=== PATIENT | female | born 1985 | race Caucasian/White ===

== ENCOUNTER 2016-10-14 00:43 | Emergency (ER) ==
[2016-10-14 00:54] VITALS: BP 133/84; TEMP 97.9; BMI 35.5
[2016-10-14] MEDS ORDERED: ZOFRAN 4 MG/2 ML IM STA (00:54)
[2016-10-14] MEDS ORDERED: DILAUDID 1 MG/ML SYRINGE IM STA (00:54)
[2016-10-14] MEDS ORDERED: TORADOL IM STA (00:54)
--- NOTE | 2016-10-14 00:57 | ED.PDOC ---
General ED Provider: Dr. HANNY HOOPER Chief Complaint: Abdominal Pain Stated Complaint: sTARTED HURTING IN THE LEFT LOWER BELLY, WORSE PAIN EVER. Time Seen by Physician: 00:55 Mode of Arrival: Walk-In Information Source: Patient Primary Care Provider: ALON JOHNSON Nursing and Triage Documentation Reviewed and Agree: Yes GI Complaint Exam - Abdominal Pain Complaint/Exam Onset: Sudden Symptoms Are: Still present Timing: Constant Initial Severity: Severe Current Severity: Severe Location of Pain: LUQ Radiates To: Reports: Flank Character: Reports: Aching, Throbbing Aggravating: Reports: Movement Alleviating: Reports: None Associated Signs and Symptoms: Reports: Nausea. Denies: Diaphoresis, Fever, Cough, Chest pain, Dizziness, Back pain, Constipation, Blood in stool, Dysuria, Urinary frequency, Decreased urine output, Decreased appetite, Vaginal bleeding , Vaginal discharge, Vomiting, Diarrhea, Sore throat, Decreased activity Related History: Reports: Similar episode AAA Risk Factors: Reports: None Cardiac Risk Factors: Reports: None Ectopic Risk Factors: Reports: None Ovarian Torsion Risk Factors: Reports: None Surgical Obstruction Risk Factors: Reports: None Related Surgical History: Reports: None Abdominal Findings: Present: None Differential Diagnoses: , Ovarian Cyst Review of Systems - Review Of Systems Constitutional: Reports: No symptoms Eyes: Reports: No symptoms Ears, Nose, Mouth, Throat: Reports: No symptoms Respiratory: Reports: No symptoms Cardiac: Reports: No symptoms GI: Reports: Abdominal pain, Nausea : Reports: No symptoms Musculoskeletal: Reports: No symptoms Skin: Reports: No symptoms Neurological: Reports: No symptoms Endocrine: Reports: No symptoms Hematologic/Lymphatic: Reports: No symptoms All Other Systems: Reviewed and Negative Past Medical History - Past Medical History Previously Healthy: No Endocrine: Reports: Other Cardiovascular: Reports: Other Respiratory: Reports: PE 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 Denies: Hysterectomy (D&c) - Family History Family History: Reports: Unknown - Social History Smoking Status: Current every day smoker, Light tobacco smoker Smoking Cessation Counseling Time: > 3 min - 10 min Hx Substance Use: No Alcohol Screening: Occasionally - Immunizations Tetanus Shot up to Date: Yes Physical Exam - Physical Exam Appearance: Ill-appearing, Obese Eyes: EOMI ENT: Ears normal, Nose normal, Oropharynx normal Respiratory: Airway patent, Breath sounds clear, Breath sounds equal, Respirations nonlabored Cardiovascular: RRR, Pulses normal, No rub, No murmur GI/: Soft, Tender Musculoskeletal: Normal strength, ROM intact, No edema, No calf tenderness Skin: Warm, Dry, Normal color Neurological: Sensation intact, Motor intact, Reflexes intact, Cranial nerves intact, Alert, Oriented Psychiatric: Affect appropriate, Mood appropriate Critical Care Note - Critical Care Note Total Time (mins): 0 Course - Course Orders, Labs, Meds: Orders Category Date Time Status URINALYSIS C & S IF INDICATED Stat LAB 10/14/16 00:54 Uncollected URINE Stat LAB 10/14/16 00:54 Uncollected Hydromorphone HCl [Dilaudid 1 mg/ml Syringe] MEDS 10/14/16 00:54 Discontinued 1 mg IM ONCE STA Ketorolac Tromethamine [Toradol] MEDS 10/14/16 00:54 Discontinued 60 mg IM ONCE STA Ondansetron HCl/Pf [Zofran 4 mg/2 ml] MEDS 10/14/16 00:54 Discontinued 4 mg IM ONCE STA CT ABDOMEN/PELVIS WO CONTRAST Stat RADS 10/14/16 00:54 Ordered Medications Discontinued Medications Generic Name Dose Route Start Last Admin Trade Name Freq PRN Reason Stop Dose Admin Hydromorphone HCl 1 mg 10/14/16 00:54 Dilaudid 1 Mg/Ml Syringe IM 10/14/16 00:55 ONCE STA Ketorolac Tromethamine 60 mg 10/14/16 00:54 Toradol IM 10/14/16 00:55 ONCE STA Ondansetron HCl 4 mg 10/14/16 00:54 Zofran 4 Mg/2 Ml IM 10/14/16 00:55 ONCE STA Vital Signs: Temp Pulse Resp BP Pulse Ox 10/14/16 00:44 97.9 F 90 20 133/84 96 Departure - Departure Time of Disposition: 00:58 Disposition: HOME SELF-CARE Discharge Problem: Abdominal pain Instructions: Ovarian Cyst (ED) Condition: Stable Pt referred to PMD for follow-up: Yes Additional Instructions: keep f/u with PMD Needs f/u with Obgyn for the cyst evaluation Allergies/Adverse Reactions: Allergies No Known Allergies Allergy (Verified 10/14/16 00:54) Home Medications: Ambulatory Orders Propranolol HCl [Inderal] 20 mg PO DAILY 03/28/13 Warfarin Sodium [Coumadin] 7 mg PO EVERY OTHER DAY 03/28/13 Warfarin Sodium [Coumadin] 8 mg PO EVERY OTHER DAY 03/15/16 Alprazolam [Xanax] 0.5 mg PO TID #90 05/13/16 Citalopram Hydrobromide [Celexa] 40 mg PO BEDTIME #30 05/13/16 Amoxicillin/Potassium Clav [Augmentin 500-125 mg Tab] 1 tab PO Q12HR #20 tablet 09/23/16 Dextromethorphan Hb/Doxylamine [Robitussin Nighttime Cough Dm] 118 ml PO TID #1 bottle 09/23/16 Prednisone 10 mg PO BIDWM #14 tablet 09/23/16 Disposition Discussed With: Patient
[2016-10-14 01:11] LABS: BILIRUBIN,URINE Negative (NEGATIVE); KETONES,URINE Negative (NEGATIVE); LEUKOCYTE ESTERASE ,URINE Negative (NEGATIVE); NITRITE,URINE Negative (NEGATIVE); PH,URINE 5.5 (5-9); PROTEIN,URINE Negative (NEGATIVE); URINE, BLOOD 2+ (NEGATIVE)
[2016-10-14 01:13] LABS: ADD URINE MICROSCOPIC YES; URINE PREGNANCY INTERNAL QC INTERNAL QC VALID
--- NOTE | 2016-10-14 01:42 | CT ---
Exam: CT of the abdomen and pelvis without contrast History: Left lower abdomen pain FINDINGS: The lung bases are clear. No significant liver abnormality. The adrenals, pancreas and sp sal are unremarkable. The stomach and hiatus are unremarkable. Prior cholecystectomy. The appendix is normal. Bowel loops demonstrate normal caliber. No inflamatory change seen in the mesentery or r etroperitoneum. The kidneys and collecting system appear normal. Vascular structures appear normal by noncontrast CT. Tiny fatty umbilical hernia without complication. Pelvic genitourinary structures appear normal. Pelvic bowel loops are unremarkable. No inflammatory change in the pelvic fat. No acute abnormality of the abdominal or pelvic skeleton. Impression: 1. No inflammatory process, bowel or urinary obstruction. No acute findings of the abdomen or pelv is.
== END 2016-10-14 02:12 | disposition home or self-care (01) ==
LOC: ED 00:43
DX: R10.32 Left lower quadrant pain (principal); D68.2 Hereditary deficiency of other clotting factors; F17.210 Nicotine dependence, cigarettes, uncomplicated; Z79.01 Long term (current) use of anticoagulants; Z79.899 Other long term (current) drug therapy
CPT/HCPCS: 81001; 81025; 96372; 99283

== ENCOUNTER 2016-10-22 22:15 | Emergency (ER) ==
[2016-10-22 22:24] VITALS: BP 124/88; TEMP 102; BMI 34.7
[2016-10-22] MEDS ORDERED: DECADRON 4 MG/ML SDV IVP STA (22:37)
[2016-10-22] MEDS ORDERED: SODIUM CHLORIDE 500 ML IV STA (22:37)
[2016-10-22] MEDS ORDERED: ROCEPHIN 1 GM in SODIUM CHLORIDE 50 ML IV STA (22:38)
--- NOTE | 2016-10-22 22:41 | ED.PDOC ---
General ED Provider: Dr. HANNY HOOPER Chief Complaint: Non-specific Complaint Stated Complaint: Sore throat, fever chills, was in [facility] for the same yesterday, is been treated with antibiotics. not helping Time Seen by Physician: 22:39 Mode of Arrival: Walk-In Information Source: Patient Primary Care Provider: ALON JOHNSON Nursing and Triage Documentation Reviewed and Agree: Yes EENT Complaint Exam - Throat Complaint/Exam Symptoms Are: Still present Timimg: Constant Initial Severity: Moderate Current Severity: Moderate Aggravating: Reports: Eating Alleviating: Reports: None Associated Signs and Symptoms: Reports: Fever, Dysphagia, Cough, Sinus discomfort, Nasal congestion, Irritability, Decreased activity. Denies: Drooling, Foreign body sensation, Chills, Wheezing, Hoarseness, Difficulty breathing, Lethargy, Vomiting, Diarrhea, Decreased hearing, Ear drainage Related History: Reports: Similar Episode Uvula Midline: Yes Mari-tonsillar Fluctuence: No Scarlatinaform Rash Present: No Stridor Present: No Sinus Tenderness Present: No Tonsillar Hypertrophy Present: No Tonsillar Exudate Present: No Mari-tonsillar Swelling Present: No Adenopathy Present: Yes Splenomegaly Present: No Differential Diagnoses: Influenza, Laryngitis, Pharyngitis, URI Review of Systems - Review Of Systems Constitutional: Reports: Chills, Fever, Malaise, Weakness Eyes: Reports: No symptoms Ears, Nose, Mouth, Throat: Reports: Throat pain Respiratory: Reports: Cough Cardiac: Reports: No symptoms GI: Reports: No symptoms : Reports: No symptoms Musculoskeletal: Reports: No symptoms Skin: Reports: No symptoms Neurological: Reports: No symptoms Endocrine: Reports: No symptoms Hematologic/Lymphatic: Reports: No symptoms All Other Systems: Reviewed and Negative Past Medical History - Past Medical History Previously Healthy: No Endocrine: Reports: Other Cardiovascular: Reports: Other Respiratory: Reports: PE 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 Denies: Hysterectomy (D&c) - Family History Family History: Reports: Unknown - Social History Smoking Status: Current every day smoker, Light tobacco smoker Smoking Cessation Counseling Time: > 3 min - 10 min Hx Substance Use: No Alcohol Screening: Occasionally Physical Exam - Physical Exam Appearance: Ill-appearing, Obese Eyes: BEE, EOMI, Conjunctiva clear ENT: Epistaxis, Erythema, Dry mucosa Respiratory: Airway patent, Breath sounds clear, Breath sounds equal, Respirations nonlabored Cardiovascular: RRR, Pulses normal, No rub, No murmur GI/: Soft, Nontender, No masses, Bowel sounds normal, No Organomegaly Musculoskeletal: Normal strength, ROM intact, No edema, No calf tenderness Skin: Warm, Dry, Normal color Neurological: Sensation intact, Motor intact, Reflexes intact, Cranial nerves intact, Alert, Oriented Psychiatric: Affect appropriate, Mood appropriate Critical Care Note - Critical Care Note Total Time (mins): 0 Course - Course Hematology/Chemistry: 10/22/16 22:58 10/22/16 22:58 Orders, Labs, Meds: Orders Category Date Time Status ED IV/MEDIPORT/POWERPORT .ONCE EMERGENCY 10/22/16 22:37 Ordered BLOOD CULTURE Stat LAB 10/22/16 22:38 Ordered CBC W/ AUTO DIFF Stat LAB 10/22/16 22:37 Ordered COMPREHENSIVE METABOLIC PANEL Stat LAB 10/22/16 22:37 Ordered RAPID FLU A/B Stat LAB 10/22/16 22:34 Ordered RAPID FLU A/B Stat LAB 10/22/16 22:37 Uncollected STREP SCREEN Stat LAB 10/22/16 22:34 Ordered STREP SCREEN Stat LAB 10/22/16 22:37 Uncollected URINALYSIS C & S IF INDICATED Stat LAB 10/22/16 22:34 Ordered URINALYSIS C & S IF INDICATED Stat LAB 10/22/16 22:37 Uncollected 0.9 % Sodium Chloride [Saline Flush] MEDS 10/22/16 22:37 Ordered 1 syr IVF PRN PRN Ceftriaxone Sodium [Rocephin] 1 gm MEDS 10/22/16 22:38 Ordered 0.9 % Sodium Chloride [Sodium Chloride] 50 ml IV ONCE Dexamethasone 4 mg/ml Inj [Decadron 4 mg/ml Sdv] MEDS 10/22/16 22:37 Stat 4 mg IVP ONCE STA SODIUM CHLORIDE 0.9% @ 500 MLS/HR(500ml) MEDS 10/22/16 22:37 Ordered Sodium Chloride 0.9% [Sodium Chloride] 500 ml IV BOLUS Medications Generic Name Dose Route Start Last Admin Trade Name Freq PRN Reason Stop Dose Admin Sodium Chloride 500 mls @ 500 mls/hr 10/22/16 22:37 Sodium Chloride IV 10/22/16 23:36 BOLUS STA Ceftriaxone Sodium 1 gm/ 50 mls @ 75 mls/hr 10/22/16 22:38 Sodium Chloride IV 10/22/16 23:17 ONCE STA Sodium Chloride 1 syr 10/22/16 22:37 Saline Flush IVF PRN PRN To flush IV Discontinued Medications Generic Name Dose Route Start Last Admin Trade Name oJseq PRN Reason Stop Dose Admin Dexamethasone Sodium Phosphate 4 mg 10/22/16 22:37 Decadron 4 Mg/Ml Sdv IVP 10/22/16 22:38 ONCE STA Vital Signs: Temp Pulse Resp BP Pulse Ox 10/22/16 22:15 102.0 F H 68 18 124/88 99 Departure - Departure Time of Disposition: 23:55 Disposition: AMA Discharge Problem: Pharyngitis Qualifiers: Pharyngitis/tonsillitis etiology: unspecified etiology Qualifier Code: (J02.9) Acute pharyngitis, unspecified Instructions: Pharyngitis (ED) Condition: Stable Pt referred to PMD for follow-up: Yes Additional Instructions: patient demands to get norcotic pain medications. Allergies/Adverse Reactions: Allergies No Known Allergies Allergy (Verified 10/22/16 22:28) Home Medications: Ambulatory Orders Propranolol HCl [Inderal] 20 mg PO DAILY 03/28/13 Warfarin Sodium [Coumadin] 7 mg PO EVERY OTHER DAY 03/28/13 Warfarin Sodium [Coumadin] 8 mg PO EVERY OTHER DAY 03/15/16 Alprazolam [Xanax] 0.5 mg PO TID #90 05/13/16 Citalopram Hydrobromide [Celexa] 40 mg PO BEDTIME #30 05/13/16 Amoxicillin/Potassium Clav [Augmentin 500-125 mg Tab] 1 tab PO BID 10/22/16 Disposition Discussed With: Patient, Family
[2016-10-22 22:57] LABS: BILIRUBIN,URINE Negative (NEGATIVE); KETONES,URINE Negative (NEGATIVE); LEUKOCYTE ESTERASE ,URINE Negative (NEGATIVE); NITRITE,URINE Negative (NEGATIVE); PH,URINE 7.5 (5-9); PROTEIN,URINE Negative (NEGATIVE); URINE, BLOOD Trace-lysed (NEGATIVE)
[2016-10-22 22:59] LABS: ADD URINE MICROSCOPIC YES
[2016-10-22 23:04] LABS: BASOPHILS % (AUTO) 0.2 % (0.0-3.0); EOSINOPHILS % (AUTO) 0.1 % (0.0-7.0); HEMATOCRIT 39.3 % (37.0-47.0); HEMOGLOBIN 13.1 g/dl (12.0-16.0); IMMATURE GRANULOCYTE % (AUTO) 0.6 % (0.0-5.0); LYMPHOCYTES # (AUTO) 1.1 K/uL (0.60-3.4); LYMPHOCYTES % (AUTO) 6.6 (10.0-50.0); MEAN CORPUSCULAR HEMOGLOBIN 33.3 pg (27.0-31.0); MEAN CORPUSCULAR HGB CONC 33.3 (31.8-35.4); MONOCYTES # (AUTO) 1.2 K/uL (0.4-2.0); MONOCYTES % (AUTO) 7.6 (0-10); NEUTROPHILS # (AUTO) 13.7 K/ul (2.0-6.9); NEUTROPHILS % (AUTO) 84.9; PLATELET COUNT 322 10^3/uL (140-440); RED BLOOD COUNT 3.93 10^6/ul (4.20-5.40); WHITE BLOOD COUNT 16.08 K/ul (4.6-10.2)
[2016-10-22 23:08] LABS: FLU INTERNAL QC INTERNAL QC VALID; RAPID FLU A NEGATIVE (NEGATIVE); RAPID FLU B NEGATIVE (NEGATIVE)
[2016-10-22 23:20] LABS: ALBUMIN 3.4 g/dL (3.4-5.0); ANION GAP 10.9; BILIRUBIN,TOTAL 0.45 mg/dL (0.00-1.20); BUN/CREATININE RATIO 12.5; CALCIUM 8.5 mg/dL (8.2-10.2); CREATININE 0.72 mg/dL (0.60-1.30); POTASSIUM 3.9 mmol/L (3.5-5.10); TOTAL PROTEIN 6.8 g/dL (6.4-8.2)
== END 2016-10-23 00:18 | disposition left against medical advice (07) ==
LOC: ED 22:15
DX: J02.9 Acute pharyngitis, unspecified (principal); R50.9 Fever, unspecified; R05 Cough; F17.210 Nicotine dependence, cigarettes, uncomplicated; Z79.01 Long term (current) use of anticoagulants; Z79.899 Other long term (current) drug therapy
CPT/HCPCS: 36415; 80053; 81001; 85025; 87040; 87651; 87804; 87880; 99284

== ENCOUNTER 2017-01-27 10:38 | Emergency (ER) ==
[2017-01-27 10:45] VITALS: BP 136/84; TEMP 97.8; BMI 35.5
[2017-01-27] MEDS ORDERED: ZOFRAN 4 MG/2 ML IM STA (11:00)
[2017-01-27] MEDS ORDERED: MORPHINE 4 MG/ML SYRINGE IM STA (11:00)
--- NOTE | 2017-01-27 11:57 | ED.PDOC ---
General ED Provider: Dr. AMIE CLARKE Chief Complaint: Headache Stated Complaint: headache Time Seen by Physician: 10:40 (yanni present ) Mode of Arrival: Walk-In Information Source: Patient Exam Limitations: No limitations Primary Care Provider: ALON JOHNSON Nursing and Triage Documentation Reviewed and Agree: Yes Neurological Complaint Exam - Headache Complaint/Exam Onset: Gradual Duration: 1 day Symptoms Are: Still present Timing: Constant Episodes Lasting: Hours Worst Headache Ever: No Initial Severity: Moderate Current Severity: Moderate Location: Frontal, Temporal Character: Reports: Throbbing Aggravating: Reports: None Alleviating: Reports: None Associated Signs and Symptoms: Reports: Nausea. Denies: Dizziness, Seizure, Vomiting, Sinus pressure, Fever, Neck pain, Neck stiffness, Decreased LOC, Visual changes Related History: Reports: Similar episode Related Surgical History: Reports: None SAH Risk Factors: Reports: None Meningitis Risk Factors: Reports: None SDH Risk Factors: Reports: None Temporal Arteritis Risk Factors: Reports: Female, Fundoscopic Exam: Present: Normal Findings Papilledema Present: No Temporal Artery Tenderness: Present: None Sinus Tenderness: Present: None TMJ Tenderness: Present: None Glascow Coma Scale (see protocol): 15 Meningeal Signs Positive: No ROM Limited In: No Limitiations Focal Weakness: Present: None Focal Sensory Loss: Present: None Gait: Normal Nystagmus Present: No Gag Reflex Present: Yes [id number]: Normal Findings Romberg Test Positive: No Babinski Sign: Negative Right, Negative Left (walked around er 11:49 am) Differential Diagnoses: Migraine Review of Systems - Review Of Systems Constitutional: Reports: No symptoms Eyes: Reports: No symptoms Ears, Nose, Mouth, Throat: Reports: No symptoms Respiratory: Reports: No symptoms Cardiac: Reports: No symptoms GI: Reports: No symptoms : Reports: No symptoms Musculoskeletal: Reports: No symptoms Skin: Reports: No symptoms Neurological: Reports: Headache Endocrine: Reports: No symptoms Hematologic/Lymphatic: Reports: No symptoms All Other Systems: Reviewed and Negative Past Medical History - Past Medical History Previously Healthy: No Endocrine: Reports: Other Cardiovascular: Reports: Other Respiratory: Reports: PE 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 Denies: Hysterectomy (D&c) - Family History Family History: Reports: Unknown - Social History Smoking Status: Current every day smoker, Light tobacco smoker Hx Substance Use: No Alcohol Screening: Occasionally Physical Exam - Physical Exam Appearance: Well-appearing, No pain distress, Well-nourished Eyes: BEE, EOMI, Conjunctiva clear ENT: Ears normal, Nose normal, Oropharynx normal Respiratory: Airway patent, Breath sounds clear, Breath sounds equal, Respirations nonlabored Cardiovascular: RRR, Pulses normal, No rub, No murmur GI/: Soft, Nontender, No masses, Bowel sounds normal, No Organomegaly Musculoskeletal: Normal strength, ROM intact, No edema, No calf tenderness Skin: Warm, Dry, Normal color Neurological: Sensation intact, Motor intact, Reflexes intact, Cranial nerves intact, Alert, Oriented Psychiatric: Affect appropriate, Mood appropriate Critical Care Note - Critical Care Note Total Time (mins): 0 Course - Course Orders, Labs, Meds: Orders Category Date Time Status Morphine Sulfate [Morphine 4 mg/ml Syringe] MEDS 01/27/17 11:00 Discontinued 4 mg IM ONCE STA Ondansetron HCl/Pf [Zofran 4 mg/2 ml] MEDS 01/27/17 11:00 Discontinued 4 mg IM ONCE STA Medications Discontinued Medications Generic Name Dose Route Start Last Admin Trade Name Emilia PRN Reason Stop Dose Admin Morphine Sulfate 4 mg 01/27/17 11:00 01/27/17 11:13 Morphine 4 Mg/Ml Syringe IM 01/27/17 11:01 4 mg ONCE STA Administration Ondansetron HCl 4 mg 01/27/17 11:00 01/27/17 11:13 Zofran 4 Mg/2 Ml IM 01/27/17 11:01 4 mg ONCE STA Administration Vital Signs: Temp Pulse Resp BP Pulse Ox 01/27/17 10:39 97.8 F 60 16 136/84 98 Departure - Departure Time of Disposition: 11:57 Disposition: HOME SELF-CARE Discharge Problem: Headache Instructions: Acute Headache (ED) Condition: Good Pt referred to PMD for follow-up: No Additional Instructions: Please call your Family Physician as soon as possible to schedule a follow-up appointment. Allergies/Adverse Reactions: Allergies No Known Allergies Allergy (Verified 01/27/17 10:43) Home Medications: Ambulatory Orders Propranolol HCl [Inderal] 20 mg PO DAILY 03/28/13 Warfarin Sodium [Coumadin] 7 mg PO Q72HR 03/28/13 Warfarin Sodium [Coumadin] 8 mg PO Q48H 03/15/16 Disposition Discussed With: Patient
== END 2017-01-27 12:24 | disposition home or self-care (01) ==
LOC: ED 10:38
DX: R51 Headache (principal); F17.210 Nicotine dependence, cigarettes, uncomplicated
CPT/HCPCS: 96372; 99283

== ENCOUNTER 2017-04-20 17:14 | Emergency (ER) ==
[2017-04-20 17:20] VITALS: BP 165/98; TEMP 98.6; BMI 35.5
[2017-04-20] MEDS ORDERED: SODIUM CHLORIDE 1,000 ML IV STA (17:33)
--- NOTE | 2017-04-20 17:33 | ED.PDOC ---
General ED Provider: Dr. KADEN COVINGTON Chief Complaint: Headache Stated Complaint: Working outdoors; feels weak, legs cramping, jaw feels tight. Headache Time Seen by Physician: 17:20 Mode of Arrival: Walk-In Information Source: Patient Exam Limitations: No limitations Primary Care Provider: ALON JOHNSON Nursing and Triage Documentation Reviewed and Agree: Yes Review of Systems - Review Of Systems Constitutional: Reports: Malaise, Weakness Eyes: Reports: No symptoms Respiratory: Reports: No symptoms Cardiac: Reports: No symptoms GI: Reports: Nausea Musculoskeletal: Reports: Other (legs and muscle cramping) Neurological: Reports: Headache All Other Systems: Reviewed and Negative Past Medical History - Past Medical History Previously Healthy: No Endocrine: Reports: Other Cardiovascular: Reports: Other Respiratory: Reports: PE Hematological: Reports: Other ( FACTOR 5; recently started on Xarelto) Gastrointestinal: Reports: None Genitourinary: Reports: Kidney stones, Other (Just off 15 day period; felt weak afterwards.) Neuro/Psych: Reports: Migraine, Anxiety, Depression Musculoskeletal: Reports: None Cancer: Reports: None Last Menstrual Period: 5 days ago Other Pertinent Past Medical History: FACTOR 5 - Surgical History General Surgical History: Reports: Tubal ligation, Cholecystectomy. Denies: Hysterectomy (D&c) - Family History Family History: Reports: Unknown - Social History Smoking Status: Current some day smoker Hx Substance Use: No Alcohol Screening: Occasionally - Immunizations Tetanus Shot up to Date: Yes Physical Exam - Physical Exam Appearance: Ill-appearing Ill-appearing: Mild Eyes: BEE, EOMI, Conjunctiva clear ENT: Nose normal, Oropharynx normal Neck: Supple Respiratory: Airway patent, Breath sounds clear, Breath sounds equal, Respirations nonlabored Cardiovascular: RRR, Pulses normal (Bilat radial ) GI/: Soft, Nontender Musculoskeletal: Normal strength, ROM intact Skin: Warm, Dry, Normal color Neurological: Sensation intact, Motor intact Psychiatric: Affect appropriate, Mood appropriate, Anxious Critical Care Note - Critical Care Note Total Time (mins): 25 Course - Course Hematology/Chemistry: 04/20/17 17:35 04/20/17 17:35 Orders, Labs, Meds: Lab Review 04/20/17 17:35 WBC 12.15 H RBC 4.46 Hgb 15.1 Hct 43.3 MCV 97.1 MCH 33.9 H MCHC 34.9 RDW Coeff of Rainer 12.3 Plt Count 364 Immature Gran % (Auto) 0.3 Neut % (Auto) 63.5 Lymph % (Auto) 25.5 [place] % (Auto) 8.8 Eos % (Auto) 1.4 Baso % (Auto) 0.5 Immature Gran # (Auto) 0.0 Neut # 7.7 H Lymph # 3.1 [place] # 1.1 Eos # 0.2 Baso # 0.1 Sodium 138 Potassium 4.1 Chloride 108 H Carbon Dioxide 20 L Anion Gap 14.1 BUN 12 Creatinine 0.75 Estimated GFR (MDRD) 90.00 BUN/Creatinine Ratio 16.00 Glucose 82 Calcium 9.1 Total Bilirubin 0.48 AST 15 ALT 17 Alkaline Phosphatase 65 Total Protein 7.2 Albumin 3.9 Globulin 3.3 Albumin/Globulin Ratio 1.18 Serum , Qual Negative Orders Category Date Time Status ED IV/MEDIPORT/POWERPORT .ONCE EMERGENCY 04/20/17 17:46 Active CBC W/ AUTO DIFF Stat LAB 04/20/17 17:35 Completed COMPREHENSIVE METABOLIC PANEL Stat LAB 04/20/17 17:35 Completed SERUM Stat LAB 04/20/17 17:35 Completed 0.9 % Sodium Chloride [Saline Flush] MEDS 04/20/17 17:46 Ordered 1 syr IVF PRN PRN Ondansetron HCl/Pf [Zofran 4 mg/2 ml] MEDS 04/20/17 18:20 Discontinued 4 mg IVP ONCE STA Sodium Chloride 0.9% [Sodium Chloride] 1,000 ml MEDS 04/20/17 17:33 Discontinued IV BOLUS Medications Generic Name Dose Route Start Last Admin Trade Name Freq PRN Reason Stop Dose Admin Sodium Chloride 1 syr 04/20/17 17:46 Saline Flush IVF PRN PRN To flush IV Discontinued Medications Generic Name Dose Route Start Last Admin Trade Name Freq PRN Reason Stop Dose Admin Sodium Chloride 1,000 mls @ 1,000 mls/hr 04/20/17 17:33 04/20/17 17:48 Sodium Chloride IV 04/20/17 18:32 1,000 mls/hr BOLUS STA Administration Ondansetron HCl 4 mg 04/20/17 18:20 04/20/17 18:23 Zofran 4 Mg/2 Ml IVP 04/20/17 18:21 4 mg ONCE STA Administration Vital Signs: Temp Pulse Resp BP Pulse Ox 07/12/17 17:15 98.6 F 67 18 165/98 H 97 Departure - Departure Time of Disposition: 18:49 Disposition: HOME SELF-CARE Discharge Problem: Nausea, Dehydration Instructions: Dehydration (ED) Condition: Stable Pt referred to PMD for follow-up: Yes (Call for appintment) Prescriptions: Hydrocodone Bit/Acetaminophen [Conetoe 7.5-325] 1 tab PO Q6HR PRN #12 tablet PRN Reason: pain Promethazine HCl [Phenergan Supp] 25 mg RC Q6H #10 tab Allergies/Adverse Reactions: Allergies No Known Allergies Allergy (Verified 01/27/17 10:43) Home Medications: Ambulatory Orders Propranolol HCl [Inderal] 20 mg PO DAILY 03/28/13 Hydrocodone Bit/Acetaminophen [Conetoe 7.5-325] 1 tab PO Q6HR PRN #12 tablet 04/20 Promethazine HCl [Phenergan Supp] 25 mg RC Q6H #10 tab 04/20/17 Rivaroxaban [Xarelto] 20 mg PO DAILY 04/20/17
[2017-04-20 17:51] LABS: BASOPHILS # (AUTO) 0.1 K/uL (0-0.2); BASOPHILS % (AUTO) 0.5 % (0.0-3.0); EOSINOPHILS # (AUTO) 0.2 K/ul (0.0-0.7); EOSINOPHILS % (AUTO) 1.4 % (0.0-7.0); HEMATOCRIT 43.3 % (37.0-47.0); HEMOGLOBIN 15.1 g/dl (12.0-16.0); IMMATURE GRANULOCYTE % (AUTO) 0.3 % (0.0-5.0); LYMPHOCYTES # (AUTO) 3.1 K/uL (0.60-3.4); LYMPHOCYTES % (AUTO) 25.5 (10.0-50.0); MEAN CORPUSCULAR HEMOGLOBIN 33.9 pg (27.0-31.0); MEAN CORPUSCULAR HGB CONC 34.9 (31.8-35.4); MEAN CORPUSCULAR VOLUME 97.1 fl (81.0-99.0); MONOCYTES # (AUTO) 1.1 K/uL (0.4-2.0); MONOCYTES % (AUTO) 8.8 (0-10); NEUTROPHILS # (AUTO) 7.7 K/ul (2.0-6.9); NEUTROPHILS % (AUTO) 63.5; PLATELET COUNT 364 10^3/uL (140-440); RED BLOOD COUNT 4.46 10^6/ul (4.20-5.40); WHITE BLOOD COUNT 12.15 K/ul (4.6-10.2)
[2017-04-20 18:05] LABS: SERUM PREGNANCY INTERNAL QC INTERNAL QC VALID
[2017-04-20 18:08] LABS: ALBUMIN 3.9 g/dL (3.4-5.0); ALBUMIN/GLOBULIN RATIO 1.18; ANION GAP 14.1; BILIRUBIN,TOTAL 0.48 mg/dL (0.00-1.20); CALCIUM 9.1 mg/dL (8.2-10.2); CREATININE 0.75 mg/dL (0.60-1.30); POTASSIUM 4.1 mmol/L (3.5-5.10); TOTAL PROTEIN 7.2 g/dL (6.4-8.2)
[2017-04-20] MEDS ORDERED: ZOFRAN 4 MG/2 ML IVP STA (18:20)
== END 2017-04-20 19:05 | disposition home or self-care (01) ==
LOC: ED 17:14
DX: E86.0 Dehydration (principal); R11.0 Nausea; F17.210 Nicotine dependence, cigarettes, uncomplicated; Z79.899 Other long term (current) drug therapy
CPT/HCPCS: 36415; 80053; 84703; 85025; 96360; 96361; 96374; 99283

== ENCOUNTER 2017-07-20 12:33 | Emergency (ER) ==
[2017-07-20 12:45] VITALS: BP 137/88; TEMP 98.5; BMI 36.8
--- NOTE | 2017-07-20 16:04 | ED.PDOC ---
General <RUBIN JONES - Last Filed: 07/20/17 19:47> Stated Complaint: mid abdominal pain x 4 days. No N/V/D/C. No fever or chills. No pain with urination. No urinary symptoms. Pain is 8/10. Patient also suffers from anxiety and states it's been getting very bad while waiting in ED to be seen. Time Seen by Physician: 15:58 Mode of Arrival: Walk-In Information Source: Patient Exam Limitations: No limitations Nursing and Triage Documentation Reviewed and Agree: Yes <MARIA CESAR - Last Filed: 07/21/17 06:57> ED Provider: Dr. MARIA CESAR Chief Complaint: Abdominal Pain Primary Care Provider: ALON BECKER GI Complaint Exam - Abdominal Pain Complaint/Exam Onset: Sudden Duration: 4 days Symptoms Are: Still present Timing: Constant Initial Severity: Moderate Current Severity: Severe Location of Pain: Diffuse (in periumbilical region) Character: Reports: Sharp (sharp this afternoon), Aching, Throbbing Aggravating: Reports: Food (triggers pain immediately) Alleviating: Reports: None Associated Signs and Symptoms: Denies: Back pain, Urinary frequency, Decreased urine output, Vaginal bleeding, Vaginal discharge, Nausea, Vomiting, Diarrhea <MARIA CESAR - Last Filed: 07/21/17 06:57> Review of Systems - Review Of Systems Constitutional: Reports: No symptoms Eyes: Reports: No symptoms Ears, Nose, Mouth, Throat: Reports: No symptoms Respiratory: Reports: No symptoms Cardiac: Reports: No symptoms GI: Reports: Abdominal pain. 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) Gastrointestinal: Reports: None Genitourinary: Reports: Kidney stones, Other (Just off 15 day period; felt weak afterwards.) Neuro/Psych: Reports: Migraine, Anxiety, Depression Musculoskeletal: Reports: None Cancer: Reports: None Last Menstrual Period: 09/14 Other Pertinent Past Medical History: FACTOR 5 - Surgical History General Surgical History: Reports: Tubal ligation, Cholecystectomy, Other (D&C) - Family History Family History: Reports: Unknown - Social History Smoking Status: Current every day smoker, Current some day smoker, Light tobacco smoker Hx Substance Use: No Alcohol Screening: Occasionally Lives: With family - Immunizations Tetanus Shot up to Date: No Influenza Vaccine within 12 Months: No Pneumococcal Vaccine up to Date: No <MARIA CESAR - Last Filed: 07/21/17 06:57> Physical Exam - Physical Exam Appearance: Well-appearing, No pain distress, Well-nourished Eyes: BEE, EOMI, Conjunctiva clear ENT: Ears normal, Nose normal, Oropharynx normal Respiratory: Airway patent, Breath sounds clear, Breath sounds equal, Respirations nonlabored Cardiovascular: RRR, Pulses normal, No rub, No murmur GI/: Soft, No masses, Bowel sounds normal, Tender Musculoskeletal: Normal strength, ROM intact, No edema, No calf tenderness Skin: Warm, Dry, Normal color Neurological: Sensation intact Psychiatric: Affect appropriate, Mood appropriate <RUBIN JONES - Last Filed: 07/20/17 19:47> - Physical Exam Appearance: Well-appearing, Well-nourished, Obese Ill-appearing: None Pain Distress: Moderate Eyes: BEE, EOMI, Conjunctiva clear ENT: Ears normal, Nose normal, Oropharynx normal Neck: Supple Respiratory: Airway patent, Breath sounds clear, Breath sounds equal, Respirations nonlabored Cardiovascular: RRR, Pulses normal, No rub, No murmur GI/: Soft, Nontender (including in periumbilical area to deep palpation. No CVA tenderness), No masses, Bowel sounds normal, No Organomegaly Musculoskeletal: Normal strength, ROM intact, No edema, No calf tenderness Skin: Warm, Dry, Normal color Neurological: Sensation intact, Motor intact, Reflexes intact, Cranial nerves intact, Alert, Oriented Psychiatric: Affect appropriate, Anxious <MARIA CESAR - Last Filed: 07/21/17 06:57> Interpretation - Radiology Interpretation Radiology Interpretation By: Radiologist Radiology Results: Positive Exam Interpreted: CT Scan ("periumbilical hernia"--reduced) <RUBIN JONES - Last Filed: 07/20/17 19:47> Re-Evaluation - Re-Evaluation Time of Re-Evaluation: 19:48 Status: Improved Vital Signs Stable: Yes Pain Level: 1 Appearance: NAD Lungs: Clear Skin: Warm and Dry Neuro: Alert and Oriented X3 CV: RRR <RUBIN JONES - Last Filed: 07/20/17 19:47> Critical Care Note - Critical Care Note Total Time (mins): 0 <RUBIN JONES - Last Filed: 07/20/17 19:47> Course - Course Hematology/Chemistry: 07/20/17 16:16 07/20/17 16:16 <RUBIN JONES - Last Filed: 07/20/17 19:47> - Course Hematology/Chemistry: 07/20/17 16:16 07/20/17 16:16 <MARIA CESAR - Last Filed: 07/21/17 06:57> - Course Orders, Labs, Meds: Lab Review 07/20/17 07/20/17 07/20/17 16:16 16:16 16:16 WBC 9.68 RBC 4.31 Hgb 14.6 Hct 41.1 MCV 95.4 MCH 33.9 H MCHC 35.5 H RDW Coeff of [place]ainer 12.7 Plt Count 313 Immature Gran % (Auto) 0.4 Neut % (Auto) 58.9 Lymph % (Auto) 31.6 [place] % (Auto) 7.9 Eos % (Auto) 0.8 Baso % (Auto) 0.4 Immature Gran # (Auto) 0.0 Neut # 5.7 Lymph # 3.1 [place] # 0.8 Eos # 0.1 Baso # 0.0 Sodium 138 Potassium 3.7 Chloride 107 Carbon Dioxide 22 Anion Gap 12.7 BUN 8 Creatinine 0.71 Estimated GFR (MDRD) 96.00 BUN/Creatinine Ratio 11.26 Glucose 83 Lactic Acid 9.3 Calcium 9.3 Total Bilirubin 0.74 AST 15 ALT 17 Alkaline Phosphatase 71 Total Protein 7.0 Albumin 3.6 Globulin 3.4 Albumin/Globulin Ratio 1.06 Amylase 31 Lipase 25 Urine Color Urine Clarity Urine pH Ur Specific [place] Urine Protein Urine Glucose (UA) Urine Ketones Urine Blood Urine Nitrite Urine Bilirubin Urine Urobilinogen Ur Leukocyte Esterase Urine Test 07/20/17 07/20/17 18:00 18:00 WBC RBC Hgb Hct MCV MCH MCHC RDW Coeff of [place] Plt Count Immature Gran % (Auto) Neut % (Auto) Lymph % (Auto) [place] % (Auto) Eos % (Auto) Baso % (Auto) Immature Gran # (Auto) Neut # Lymph # [place] # Eos # Baso # Sodium Potassium Chloride Carbon Dioxide Anion Gap BUN Creatinine Estimated GFR (MDRD) BUN/Creatinine Ratio Glucose Lactic Acid Calcium Total Bilirubin AST ALT Alkaline Phosphatase Total Protein Albumin Globulin Albumin/Globulin Ratio Amylase Lipase Urine Color Yellow Urine Clarity Clear Urine pH 6.5 Ur Specific [place] 1.020 Urine Protein Negative Urine Glucose (UA) Negative Urine Ketones Negative Urine Blood Negative Urine Nitrite Negative Urine Bilirubin Negative Urine Urobilinogen 0.2 Ur Leukocyte Esterase Negative Urine Test Negative Orders Category Date Time Status NPO REMINDER: IMAGING ONCE CARE 07/20/17 19:00 Active AMYLASE Stat LAB 07/20/17 16:16 Completed CBC W/ AUTO DIFF Stat LAB 07/20/17 16:16 Completed COMPREHENSIVE METABOLIC PANEL Stat LAB 07/20/17 16:16 Completed LACTIC ACID Stat LAB 07/20/17 16:16 Completed LIPASE Stat LAB 07/20/17 16:16 Completed TEST URINE [URINE ] Stat LAB 07/20/17 18:00 Completed URINALYSIS C & S IF INDICATED Stat LAB 07/20/17 18:00 Completed Hydromorphone HCl [Dilaudid 1 mg/ml Syringe] MEDS 07/20/17 19:38 Discontinued 1 mg IVP ONCE STA Lorazepam Inj [Ativan] MEDS 07/20/17 16:05 Discontinued 1 mg IM ONCE STA Morphine Sulfate [Morphine 2 mg/ml Syringe] MEDS 07/20/17 16:06 Discontinued 2 mg IM ONCE STA Ondansetron HCl/Pf [Zofran 4 mg/2 ml] MEDS 07/20/17 19:38 Discontinued 4 mg IVP ONCE STA Sodium Chloride 0.9% [Sodium Chloride] 1,000 ml MEDS 07/20/17 17:[address] ABDOMEN/PELVIS W CONTRAST Stat RADS 07/20/17 18:59 Completed Medications Discontinued Medications Generic Name Dose Route Start Last Admin Trade Name Freq PRN Reason Stop Dose Admin Hydromorphone HCl 1 mg 07/20/17 19:38 07/20/17 19:46 Dilaudid 1 Mg/Ml Syringe IVP 07/20/17 19:39 1 mg ONCE STA Administration Sodium Chloride 1,000 mls @ 1,000 mls/hr 07/20/17 17:02 07/20/17 17:32 Sodium Chloride IV 07/20/17 18:01 1,000 mls/hr BOLUS STA Administration Lorazepam 1 mg 07/20/17 16:05 07/20/17 16:28 Ativan IM 07/20/17 16:06 1 mg ONCE STA Administration Morphine Sulfate 2 mg 07/20/17 16:06 07/20/17 16:29 Morphine 2 Mg/Ml Syringe IM 07/20/17 16:07 2 mg ONCE STA Administration Ondansetron HCl 4 mg 07/20/17 19:38 07/20/17 19:46 Zofran 4 Mg/2 Ml IVP 07/20/17 19:39 4 mg ONCE STA Administration Vital Signs: Temp Pulse Resp BP Pulse Ox 07/20/17 12:33 98.5 F 92 H 20 137/88 99 Departure - Departure Time of Disposition: 19:48 Pt referred to PMD for follow-up: Yes Disposition Discussed With: Patient, Family <RUBIN JONES - Last Filed: 07/20/17 19:47> <MARIA CESAR - Last Filed: 07/21/17 06:57> - Departure Disposition: HOME SELF-CARE Discharge Problem: Umbilical hernia without mention of obstruction or gangrene Qualifiers: Obstruction and gangrene presence: without obstruction or gangrene Qualified Code(s): K42.9 - Umbilical hernia without obstruction or gangrene Instructions: Umbilical Hernia (ED) Condition: Good Additional Instructions: avoid lifting pulling or straining--see dr becker tomorrow about surgical referral Allergies/Adverse Reactions: Allergies No Known Allergies Allergy (Verified 07/20/17 12:40) Home Medications: Ambulatory Orders Propranolol HCl [Inderal] 20 mg PO DAILY 03/28/13 Promethazine HCl [Phenergan Supp] 25 mg RC Q6H #10 tab 04/20/17 Rivaroxaban [Xarelto] 20 mg PO DAILY 04/20/17
[2017-07-20 16:18] LABS: BASOPHILS % (AUTO) 0.4 % (0.0-3.0); EOSINOPHILS # (AUTO) 0.1 K/ul (0.0-0.7); EOSINOPHILS % (AUTO) 0.8 % (0.0-7.0); HEMATOCRIT 41.1 % (37.0-47.0); HEMOGLOBIN 14.6 g/dl (12.0-16.0); IMMATURE GRANULOCYTE % (AUTO) 0.4 % (0.0-5.0); LYMPHOCYTES # (AUTO) 3.1 K/uL (0.60-3.4); LYMPHOCYTES % (AUTO) 31.6 (10.0-50.0); MEAN CORPUSCULAR HEMOGLOBIN 33.9 pg (27.0-31.0); MEAN CORPUSCULAR HGB CONC 35.5 (31.8-35.4); MEAN CORPUSCULAR VOLUME 95.4 fl (81.0-99.0); MONOCYTES # (AUTO) 0.8 K/uL (0.4-2.0); MONOCYTES % (AUTO) 7.9 (0-10); NEUTROPHILS # (AUTO) 5.7 K/ul (2.0-6.9); NEUTROPHILS % (AUTO) 58.9; PLATELET COUNT 313 10^3/uL (140-440); RED BLOOD COUNT 4.31 10^6/ul (4.20-5.40); WHITE BLOOD COUNT 9.68 K/ul (4.6-10.2)
[2017-07-20] MEDS: ATIVAN IM STA (16:28)
[2017-07-20] MEDS: MORPHINE 2 MG/ML SYRINGE IM STA (16:29)
[2017-07-20 16:43] LABS: ALBUMIN 3.6 g/dL (3.4-5.0); ALBUMIN/GLOBULIN RATIO 1.06; ANION GAP 12.7; BILIRUBIN,TOTAL 0.74 mg/dL (0.00-1.20); BUN/CREATININE RATIO 11.26; CALCIUM 9.3 mg/dL (8.2-10.2); CREATININE 0.71 mg/dL (0.60-1.30); POTASSIUM 3.7 mmol/L (3.5-5.10)
[2017-07-20] MEDS: SODIUM CHLORIDE 1,000 ML IV STA (17:32)
[2017-07-20 18:13] LABS: BILIRUBIN,URINE Negative (NEGATIVE); KETONES,URINE Negative (NEGATIVE); LEUKOCYTE ESTERASE ,URINE Negative (NEGATIVE); NITRITE,URINE Negative (NEGATIVE); PH,URINE 6.5 (5-9); PROTEIN,URINE Negative (NEGATIVE); URINE, BLOOD Negative (NEGATIVE)
[2017-07-20 18:15] LABS: ADD URINE MICROSCOPIC NO
[2017-07-20 18:16] LABS: URINE PREGNANCY INTERNAL QC INTERNAL QC VALID
--- NOTE | 2017-07-20 19:41 | CT ---
EXAM: CT abdomen pelvis with intravenous contrast 07/20/2017. Sagittal and coronal reformatted imag es obtained HISTORY: Periumbilical pain COMPARISON: 10/14/2016 FINDINGS: The liver shows no acute abnormality. The gallbladder has been removed. The adrenal glan ds, kidneys, spleen and pancreas show no acute abnormality. There is no bowel obstruction. Normal appendix. Fat containing periumbilical hernia. Unremarkable urinary bladder. No free air. Trace free fluid within the pelvis. IMPRESSION: 1. Status post cholecystectomy. 2. Fat containing periumbilical hernia. 3. No urinary or bowel obstruction and normal appendix 4. Trace free fluid in the dependent aspect of the pelvis.
[2017-07-20] MEDS: ZOFRAN 4 MG/2 ML IVP STA (19:46)
[2017-07-20] MEDS: DILAUDID 1 MG/ML SYRINGE IVP STA (19:46)
== END 2017-07-20 20:10 | disposition home or self-care (01) ==
LOC: ED 12:33
DX: K42.9 Umbilical hernia without obstruction or gangrene (principal); F41.9 Anxiety disorder, unspecified; D68.51 Activated protein C resistance; F17.210 Nicotine dependence, cigarettes, uncomplicated; Z79.899 Other long term (current) drug therapy; Z87.442 Personal history of urinary calculi; Z86.711 Personal history of pulmonary embolism
CPT/HCPCS: 36415; 80053; 81001; 81025; 82150; 83605; 83690; 85025; 96361; 96372; 96374; 96375; 99284

== ENCOUNTER 2017-07-28 11:13 | Outpatient (CLI) ==
[2013-03-28 12:14] VITALS: TEMP 98.6
== END 2017-07-28 11:14 | disposition home or self-care (01) ==
LOC: LAB 11:13
PROVIDERS: ATTEND Surgery
DX: K43.2 Incisional hernia without obstruction or gangrene (principal)
CPT/HCPCS: 87081

== ENCOUNTER 2017-09-03 16:14 | Emergency (ER) ==
[2017-09-03 16:17] VITALS: BP 122/87; TEMP 98.6; BMI 37.1
[2017-09-03] MEDS ORDERED: TORADOL IM STA (16:41)
--- NOTE | 2017-09-03 16:44 | ED.PDOC ---
General ED Provider: Dr. HANNY HOOPER Chief Complaint: Ankle Pain/Injury Stated Complaint: left ankle pain, no injury Time Seen by Physician: 16:42 Mode of Arrival: Walk-In Information Source: Patient Primary Care Provider: ALON JOHNSON Nursing and Triage Documentation Reviewed and Agree: Yes Musculoskeletal Complaint Exam - Ankle/Foot Complaint/Exam Location of Injury: Reports: Left, Ankle Mechanism of Injury: Reports: No known trauma Symptoms Are: Reports: Still present Onset of Pain: Reports: Days Initial Severity: Mild Current Severity: Moderate Location: Reports: Discrete Character: Reports: Aching, Throbbing Alleviating: Reports: Rest Aggravating: Reports: Movement, Weight bearing Able to Bear Weight: No Associated Signs and Symptoms: Denies: Swelling, Redness, Bruising, Fever, Weakness, Numbness, Tingling Gout Risk Factors: Reports: None Related Surgical History: Reports: None Lower Extremity Findings: Absent: Swelling, Ecchymosis, Abnormal contour, Rotation Tenderness: Present: Medial malleolus Differential Diagnosis: Closed Fracture, Sprain Review of Systems - Review Of Systems Constitutional: Reports: No symptoms Eyes: Reports: No symptoms Ears, Nose, Mouth, Throat: Reports: No symptoms Respiratory: Reports: No symptoms Cardiac: Reports: No symptoms GI: Reports: No symptoms : Reports: No symptoms Musculoskeletal: Reports: Joint pain Skin: Reports: No symptoms Neurological: Reports: No symptoms Endocrine: Reports: No symptoms Hematologic/Lymphatic: Reports: No symptoms All Other Systems: Reviewed and Negative Past Medical History - Past Medical History Previously Healthy: No Endocrine: Reports: None Cardiovascular: Reports: None Respiratory: Reports: None, PE 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) Gastrointestinal: Reports: None Genitourinary: Reports: Kidney stones, Other (Just off 15 day period; felt weak afterwards.) Neuro/Psych: Reports: Migraine, Anxiety, Depression Musculoskeletal: Reports: None Cancer: Reports: None Last Menstrual Period: N/A Other Pertinent Past Medical History: FACTOR 5 - Surgical History General Surgical History: Reports: Tubal ligation, Cholecystectomy, Other (D&C) - Family History Family History: Reports: Unknown - Social History Smoking Status: Current every day smoker, Current some day smoker, Light tobacco smoker Smoking Cessation Counseling Time: > 3 min - 10 min Hx Substance Use: No Alcohol Screening: Occasionally - Immunizations Tetanus Shot up to Date: Yes Influenza Vaccine within 12 Months: No Pneumococcal Vaccine up to Date: No Physical Exam - Physical Exam Appearance: Well-appearing, No pain distress, Well-nourished Eyes: BEE, EOMI, Conjunctiva clear ENT: Ears normal, Nose normal, Oropharynx normal Respiratory: Airway patent, Breath sounds clear, Breath sounds equal, Respirations nonlabored Cardiovascular: RRR, Pulses normal, No rub, No murmur GI/: Soft, Nontender, No masses, Bowel sounds normal, No Organomegaly Musculoskeletal: Normal strength, ROM intact, No edema, No calf tenderness Skin: Warm, Dry, Normal color Neurological: Sensation intact, Motor intact, Reflexes intact, Cranial nerves intact, Alert, Oriented Psychiatric: Affect appropriate, Mood appropriate Interpretation - Radiology Interpretation Radiology Interpretation By: ED Physician Radiology Results: Negative Critical Care Note - Critical Care Note Total Time (mins): 0 Course - Course Orders, Labs, Meds: Orders Category Date Time Status Ketorolac Tromethamine [Toradol] MEDS 09/03/17 16:41 Discontinued 30 mg IM ONCE STA ANKLE, LEFT MIN 3 VIEWS Stat RADS 09/03/17 16:41 Taken Medications Discontinued Medications Generic Name Dose Route Start Last Admin Trade Name Freq PRN Reason Stop Dose Admin Ketorolac Tromethamine 30 mg 09/03/17 16:41 09/03/17 17:04 Toradol IM 09/03/17 16:42 30 mg ONCE STA Administration Vital Signs: Temp Pulse Resp BP Pulse Ox 09/03/17 16:15 98.6 F 100 H 20 122/87 98 Departure - Departure Time of Disposition: 16:45 Disposition: HOME SELF-CARE Discharge Problem: Ankle pain Instructions: Ankle Sprain (ED) Condition: Good Pt referred to PMD for follow-up: Yes Additional Instructions: Rest hot pack Prescriptions: Hydrocodone/Acetaminophen [[place] 5-325 Tablet] 1 tab PO TID PRN #7 tablet PRN Reason: PAIN Allergies/Adverse Reactions: Allergies No Known Allergies Allergy (Verified 09/03/17 16:18) Home Medications: Ambulatory Orders Propranolol HCl [Inderal] 20 mg PO DAILY 03/28/13 Promethazine HCl [Phenergan Supp] 25 mg RC Q6H #10 tab 04/20/17 Rivaroxaban [Xarelto] 20 mg PO DAILY 04/20/17 Hydrocodone/Acetaminophen [[place] 5-325 Tablet] 1 tab PO TID PRN #7 tablet Disposition Discussed With: Patient
--- NOTE | 2017-09-03 17:39 | DI ---
Exam: Three x-rays of the left ankle. Comparison: None available. Reason for exam: Pain. FINDINGS: No acute fracture or malalignment. The joint spaces are well maintained. The talar dome is intact. There is no abnormal widening of the medial or lateral clear space. Impression: No acute fracture or dislocation in the left ankle
== END 2017-09-03 17:52 | disposition home or self-care (01) ==
LOC: ED 16:14
DX: M25.572 Pain in left ankle and joints of left foot (principal); F17.210 Nicotine dependence, cigarettes, uncomplicated
CPT/HCPCS: 96372; 99282

== ENCOUNTER 2017-10-01 16:38 | Emergency (ER) ==
[2017-10-01 16:38] VITALS: BMI 37.1
[2017-10-01 16:41] VITALS: BP 131/73; TEMP 100.1
--- NOTE | 2017-10-01 17:55 | ED.PDOC ---
General ED Provider: Dr. AMIE CLARKE Chief Complaint: Tooth Problem Stated Complaint: dental pain Time Seen by Physician: 17:00 Mode of Arrival: Walk-In Information Source: Patient Exam Limitations: No limitations Primary Care Provider: ALON JOHNSON Nursing and Triage Documentation Reviewed and Agree: Yes Reviewed sepsis parameters & appropriate labs ordered?: Yes (seen with víctor) System Inflammatory Response Syndrome: Not Applicable Sepsis Protocol: For patient's 13 years and over: Temp is 96.8 and below OR 101 and greater Pulse >90 BPM Resp >20/minute Acutely Altered Mental Status Are patient's symptoms suggestive of a new infection, such as: -Pneumonia -Skin, Soft Tissue -Endocarditis -UTI -Bone, Joint Infection -Implantable Device -Acute Abdominal Infection -Wound Infection -Meningitis -Blood Stream Catheter Infection -Unknown EENT Complaint Exam - Dental/Oral Complaint/Exam Mechanism of Injury: No known trauma Onset/Duration: 1 day Symptoms Are: Still present Timing: Constant Initial Severity: Moderate Current Severity: Moderate Character: Reports: Aching, Throbbing Aggravating: Reports: Heat, Cold, Chewing Alleviating: Reports: None Associated Signs and Symptoms: Denies: Swelling, Discharge, Fever, Foul odor, Foul taste in mouth Related History: Reports: Similar episode Cardiac Risk Factors: Reports: None Dental/Oral Surgical History: Reports: None Tooth Findings: Present: Gross decay, Gross caries, Dental fracture Cervical Lymphadenopathy Present: No Facial Swelling Present: No Bleeding Present: No Oropharynx Findings: Absent: Clots, Active bleeding Septal Hematoma: No Foreign Body Present: No Dysphagia Present: No Drooling Present: No Asymmetrical Tonsillar Swelling Present: No Uvula Midline: Yes Mari-tonsillar Fluctuence: No Trismus Present: No Palatal Petechiae Present: No Scarlatinaform Rash Present: No Teeth Picture: 1 - decay Review of Systems - Review Of Systems Constitutional: Reports: No symptoms Eyes: Reports: No symptoms Ears, Nose, Mouth, Throat: Reports: No symptoms Respiratory: Reports: No symptoms Cardiac: Reports: No symptoms GI: Reports: No symptoms : Reports: No symptoms Musculoskeletal: Reports: No symptoms Skin: Reports: No symptoms Neurological: Reports: No symptoms Endocrine: Reports: No symptoms Hematologic/Lymphatic: Reports: No symptoms All Other Systems: Reviewed and Negative Past Medical History - Past Medical History Previously Healthy: No Endocrine: Reports: None Cardiovascular: Reports: None Respiratory: Reports: None, PE 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) Gastrointestinal: Reports: None Genitourinary: Reports: Kidney stones, Other (Just off 15 day period; felt weak afterwards.) Neuro/Psych: Reports: Migraine, Anxiety, Depression Musculoskeletal: Reports: None Cancer: Reports: None Last Menstrual Period: 2 weeks Other Pertinent Past Medical History: FACTOR 5 - Surgical History General Surgical History: Reports: Tubal ligation, Cholecystectomy, Other (D&C) - Family History Family History: Reports: Unknown - Social History Smoking Status: Current every day smoker, Current some day smoker, Light tobacco smoker Hx Substance Use: No Alcohol Screening: Occasionally - Immunizations Influenza Vaccine within 12 Months: No Pneumococcal Vaccine up to Date: No Physical Exam - Physical Exam Appearance: Well-appearing, No pain distress, Well-nourished Eyes: BEE, EOMI, Conjunctiva clear ENT: Ears normal, Nose normal, Oropharynx normal Respiratory: Airway patent, Breath sounds clear, Breath sounds equal, Respirations nonlabored Cardiovascular: RRR, Pulses normal, No rub, No murmur GI/: Soft, Nontender, No masses, Bowel sounds normal, No Organomegaly Musculoskeletal: Normal strength, ROM intact, No edema, No calf tenderness Skin: Warm, Dry, Normal color Neurological: Sensation intact, Motor intact, Reflexes intact, Cranial nerves intact, Alert, Oriented Psychiatric: Affect appropriate, Mood appropriate Critical Care Note - Critical Care Note Total Time (mins): 0 Course - Course Vital Signs: Temp Pulse Resp BP Pulse Ox 10/01/17 16:38 100.1 F H 91 H 20 131/73 97 Departure - Departure Time of Disposition: 17:55 Disposition: HOME SELF-CARE Discharge Problem: Toothache Instructions: Toothache (ED), Dental Caries (GEN) Condition: Good Pt referred to PMD for follow-up: Yes Prescriptions: Hydrocodone/Acetaminophen [[place] 10-325 Tablet] 1 each PO Q8HR #10 tablet Allergies/Adverse Reactions: Allergies No Known Allergies Allergy (Verified 10/01/17 16:41) Home Medications: Ambulatory Orders Propranolol HCl [Inderal] 20 mg PO DAILY 03/28/13 Rivaroxaban [Xarelto] 20 mg PO DAILY 04/20/17 Alprazolam [Xanax] 0.25 mg PO DAILY 10/01/17 Clonazepam [Klonopin] 0.5 mg PO BEDTIME 10/01/17 Hydrocodone/Acetaminophen [[place] 10-325 Tablet] 1 each PO Q8HR #10 tablet
== END 2017-10-01 18:03 | disposition home or self-care (01) ==
LOC: ED 16:38
DX: K08.89 Other specified disorders of teeth and supporting structures (principal); K02.7 Dental root caries; S02.5XXA Fracture of tooth (traumatic), initial encounter for closed fracture; F17.210 Nicotine dependence, cigarettes, uncomplicated
CPT/HCPCS: 99282

== ENCOUNTER 2017-11-18 18:39 | Outpatient (CLI) ==
[2013-03-28 12:14] VITALS: TEMP 98.6
== END 2017-11-18 18:40 | disposition short-term general hospital (02) ==
LOC: AMBL 18:39
PROVIDERS: ATTEND Internal Medicine
DX: R55 Syncope and collapse (principal); R06.4 Hyperventilation; F41.9 Anxiety disorder, unspecified; R20.2 Paresthesia of skin

== ENCOUNTER 2017-12-12 18:44 | Emergency (ER) ==
[2017-12-12 18:45] VITALS: BMI 37.1
[2017-12-12 18:48] VITALS: BP 129/89; TEMP 99
--- NOTE | 2017-12-12 19:06 | ED.PDOC ---
General ED Provider: Dr. ANGI SANTIAGO Chief Complaint: Headache Stated Complaint: patient is a a 32 year old who complains of constant frontal headach like prior migranes. Recenlty had a CT brain at [facility], [place], operated by [facility] that was normal. Time Seen by Physician: 19:20 Mode of Arrival: Walk-In Information Source: Patient Exam Limitations: No limitations Primary Care Provider: ALON JOHNSON Nursing and Triage Documentation Reviewed and Agree: Yes Reviewed sepsis parameters & appropriate labs ordered?: No System Inflammatory Response Syndrome: Pulse >90 BPM Sepsis Protocol: For patient's 13 years and over: Temp is 96.8 and below OR 101 and greater Pulse >90 BPM Resp >20/minute Acutely Altered Mental Status Are patient's symptoms suggestive of a new infection, such as: -Pneumonia -Skin, Soft Tissue -Endocarditis -UTI -Bone, Joint Infection -Implantable Device -Acute Abdominal Infection -Wound Infection -Meningitis -Blood Stream Catheter Infection -Unknown System Inflammatory Response Syndrome: Not Applicable Neurological Complaint Exam - Headache Complaint/Exam Onset: Gradual Duration: 1 day Symptoms Are: Still present Timing: Constant Worst Headache Ever: No Initial Severity: Moderate Current Severity: Severe Location: Frontal Character: Reports: Throbbing, Typical headache Aggravating: Reports: Bright lights Associated Signs and Symptoms: Reports: Nausea. Denies: Dizziness, Seizure, Vomiting, Sinus pressure, Fever, Neck pain, Neck stiffness, Decreased LOC, Visual changes Related Surgical History: Reports: None SAH Risk Factors: Reports: None Normal Head CT Within Last 12 Months: Yes (at [facility], [place], operated by [facility] few months ago ) Fundoscopic Exam: Present: Normal Findings Papilledema Present: No Temporal Artery Tenderness: Present: None Sinus Tenderness: Present: None TMJ Tenderness: Present: None Glascow Coma Scale (see protocol): 15 Meningeal Signs Positive: No Pain on Passive Flexion-Positive Kernig's: No ROM Limited In: No Limitiations Focal Weakness: Present: None Focal Sensory Loss: Present: None Gait: Normal Nystagmus Present: No Gag Reflex Present: Yes [id number]: Normal Findings Romberg Test Positive: No Babinski Sign: Negative Right, Negative Left Heel to Toe Normal: Yes Differential Diagnoses: Migraine Review of Systems - Review Of Systems Constitutional: Reports: Loss of appetite Eyes: Reports: Photophobia Ears, Nose, Mouth, Throat: Reports: No symptoms Respiratory: Reports: No symptoms Cardiac: Reports: No symptoms GI: Reports: No symptoms, Nausea. 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) Gastrointestinal: Reports: None Genitourinary: Reports: Kidney stones, Other (Just off 15 day period; felt weak afterwards.) Neuro/Psych: Reports: Migraine, Anxiety, Depression Musculoskeletal: Reports: None Cancer: Reports: None Last Menstrual Period: 3 weeks ago Other Pertinent Past Medical History: FACTOR 5 - Surgical History General Surgical History: Reports: Tubal ligation, Cholecystectomy, Other (D&C) - Family History Family History: Reports: Unknown - Social History Smoking Status: Former smoker Hx Substance Use: No Alcohol Screening: None - Immunizations Tetanus Shot up to Date: No Influenza Vaccine within 12 Months: No Pneumococcal Vaccine up to Date: No Physical Exam - Physical Exam Appearance: Ill-appearing, Obese Ill-appearing: Mild Pain Distress: Severe Eyes: BEE, EOMI, Conjunctiva clear Neck: Supple Respiratory: Airway patent, Breath sounds clear, Breath sounds equal, Respirations nonlabored Cardiovascular: RRR, Pulses normal, No rub, No murmur GI/: Soft, Nontender Musculoskeletal: Normal strength, ROM intact Skin: Warm, Dry Neurological: Sensation intact, Motor intact, Reflexes intact, Cranial nerves intact, Alert, Oriented Psychiatric: Anxious Critical Care Note - Critical Care Note Total Time (mins): 0 Course - Course Orders, Labs, Meds: Orders Category Date Time Status Butorphanol Tartrate [Stadol] MEDS 12/12/17 20:05 Discontinued 2 mg IM ONCE STA Ondansetron [Zofran Odt] MEDS 12/12/17 21:13 Discontinued 4 mg PO ONCE STA Promethazine HCl [Phenergan 25 mg/ml Vial] MEDS 12/12/17 19:23 Discontinued 25 mg IM ONCE STA Sumatriptan Succinate [Imitrex] MEDS 12/12/17 19:24 Discontinued 6 mg SUBCUT ONCE STA Medications Discontinued Medications Generic Name Dose Route Start Last Admin Trade Name Freq PRN Reason Stop Dose Admin Butorphanol Tartrate 2 mg 12/12/17 20:05 12/12/17 20:14 Stadol IM 12/12/17 20:06 2 mg ONCE STA Administration Ondansetron HCl 4 mg 12/12/17 21:13 12/12/17 21:18 Zofran Odt PO 12/12/17 21:14 4 mg ONCE STA Administration Promethazine HCl 25 mg 12/12/17 19:23 12/12/17 19:30 Phenergan 25 Mg/Ml Vial IM 12/12/17 19:24 25 mg ONCE STA Administration Sumatriptan Succinate 6 mg 12/12/17 19:24 12/12/17 19:30 Imitrex SUBCUT 12/12/17 19:25 6 mg ONCE STA Administration Vital Signs: Temp Pulse Resp BP Pulse Ox 12/12/17 18:45 99.0 F 102 H 18 129/89 98 Departure - Departure Time of Disposition: 21:14 Disposition: HOME SELF-CARE Discharge Problem: Migraine Qualifiers: Migraine type: without aura Status migrainosus presence: without status migrainosus Intractability: not intractable Qualified Code(s): G43.009 - Migraine without aura, not intractable, without status migrainosus Instructions: Migraine Headache (ED) Condition: Stable Pt referred to PMD for follow-up: Yes IPMP verified?: No Additional Instructions: Take medications as prescribed. Follow up with PC in 3 days Prescriptions: Butalb/Acetaminophen/Caffeine [Fioricet] 1 each PO TID PRN #10 tablet PRN Reason: Headache Ondansetron HCl [Zofran Tab] 4 mg PO Q8H PRN #14 tablet PRN Reason: Nausea / Vomiting Allergies/Adverse Reactions: Allergies No Known Allergies Allergy (Verified 10/01/17 16:41) Home Medications: Ambulatory Orders Propranolol HCl [Inderal] 20 mg PO DAILY 03/28/13 Rivaroxaban [Xarelto] 20 mg PO DAILY 04/20/17 Butalb/Acetaminophen/Caffeine [Fioricet] 1 each PO TID PRN #10 tablet 12/12/17 Ondansetron HCl [Zofran Tab] 4 mg PO Q8H PRN #14 tablet 12/12/17 Disposition Discussed With: Patient
[2017-12-12] MEDS ORDERED: PHENERGAN 25 MG/ML VIAL IM STA (19:23)
[2017-12-12] MEDS ORDERED: IMITREX SUBCUT STA (19:24)
[2017-12-12] MEDS ORDERED: STADOL IM STA (20:05)
[2017-12-12] MEDS ORDERED: ZOFRAN ODT PO STA (21:13)
== END 2017-12-12 21:30 | disposition home or self-care (01) ==
LOC: ED 18:44
DX: G43.009 Migraine without aura, not intractable, without status migrainosus (principal)
CPT/HCPCS: 96372; 99282

== ENCOUNTER 2018-01-20 18:50 | Emergency (ER) ==
[2018-01-20] MEDS ORDERED: NITROSTAT SL STA (18:52)
[2018-01-20 19:00] VITALS: BP 132/91; TEMP 97.8; BMI 39.4
--- NOTE | 2018-01-20 19:10 | ED.PDOC ---
General ED Provider: Dr. RUBIN LAM-ER Chief Complaint: Chest Pain Stated Complaint: carline been hurting Time Seen by Physician: 18:55 Mode of Arrival: Walk-In Information Source: Patient Exam Limitations: No limitations Primary Care Provider: ALON JOHNSON Nursing and Triage Documentation Reviewed and Agree: Yes Reviewed sepsis parameters & appropriate labs ordered?: Yes System Inflammatory Response Syndrome: Not Applicable Sepsis Protocol: For patient's 13 years and over: Temp is 96.8 and below OR 101 and greater Pulse >90 BPM Resp >20/minute Acutely Altered Mental Status Are patient's symptoms suggestive of a new infection, such as: -Pneumonia -Skin, Soft Tissue -Endocarditis -UTI -Bone, Joint Infection -Implantable Device -Acute Abdominal Infection -Wound Infection -Meningitis -Blood Stream Catheter Infection -Unknown Cardiovascular Complaint Exam - Chest Pain Complaint/Exam Onset: Gradual Duration: several days Symptoms Are: Still present Timing: Intermittent Initial Severity: Mild Current Severity: Moderate Location: Reports: Left anterior Character: Reports: Dull, Aching, Tightness, Pressure Aggravating: Reports: None Associated Signs and Symptoms: Denies: Diaphoresis, Nausea, Vomiting, Fever, Palpitations, Cough, Hemoptysis, Back pain, Abdominal pain, Dizziness, Short of air, Calf swelling Related History: Reports: Current Beta [place] History of Healthcare-Acquired Pneumonia: Reports: No TAD Risk Factors: Reports: None Prior Care for this Complaint: Yes Recent Stress Test: No Recent Echo/LV Function: No JVD Present: No Subcutaneous Emphysema Present: No Diminshed Breath Sounds: No Reproducible Chest Wall Pain: No Bilateral Pulses Present: Yes Unequal Pulses Noted: No Review of Systems - Review Of Systems Constitutional: Reports: No symptoms Eyes: Reports: No symptoms Ears, Nose, Mouth, Throat: Reports: No symptoms Respiratory: Reports: No symptoms Cardiac: Reports: Chest pain GI: Reports: No symptoms : Reports: No symptoms Musculoskeletal: Reports: No symptoms Skin: Reports: No symptoms Neurological: Reports: No symptoms Endocrine: Reports: No symptoms Hematologic/Lymphatic: Reports: No symptoms All Other Systems: Reviewed and Negative Past Medical History - Past Medical History Previously Healthy: No Endocrine: Reports: None Cardiovascular: Reports: None Respiratory: Reports: None, PE 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) Gastrointestinal: Reports: None Genitourinary: Reports: Kidney stones, Other (Just off 15 day period; felt weak afterwards.) Neuro/Psych: Reports: Migraine, Anxiety, Depression Musculoskeletal: Reports: None Cancer: Reports: None Last Menstrual Period: 12/27/17 Other Pertinent Past Medical History: FACTOR 5 - Surgical History General Surgical History: Reports: Tubal ligation, Cholecystectomy, Other (D&C) - Family History Family History: Reports: Unknown - Social History Smoking Status: Former smoker Hx Substance Use: No Alcohol Screening: None - Immunizations Tetanus Shot up to Date: Yes Influenza Vaccine within 12 Months: No Pneumococcal Vaccine up to Date: No Physical Exam - Physical Exam Appearance: Ill-appearing Pain Distress: Moderate Eyes: BEE, EOMI, Conjunctiva clear ENT: Ears normal, Nose normal, Oropharynx normal Neck: Supple Respiratory: Airway patent, Breath sounds clear, Breath sounds equal, Respirations nonlabored Cardiovascular: RRR, Pulses normal, No rub, No murmur GI/: Soft, Nontender, No masses, Bowel sounds normal, No Organomegaly Musculoskeletal: Normal strength, ROM intact, No edema, No calf tenderness Skin: Warm, Dry, Normal color Neurological: Sensation intact, Motor intact, Reflexes intact, Cranial nerves intact, Alert, Oriented Psychiatric: Affect appropriate, Mood appropriate Interpretation - Radiology Interpretation Radiology Interpretation By: ED Physician Radiology Results: Negative Exam Interpreted: Portable CXR - Potato Grader Time of Potato Grader Interpretation: 19:11 Rate: Normal Rhythm: Sinus Ectopy: None - EKG Interpretation Time of EKG #1: 19:11 Rate: Normal Rhythm: Sinus Ectopy: None Vanleer: NL ST Segment: Normal Physician Notification - Case Discussed Physician Notified: dr may Time of Notification: 19:24 Critical Care Note - Critical Care Note Total Time (mins): 30 Course - Course Orders, Labs, Meds: Orders Category Date Time Status EKG-(ED ONLY) Stat CARDIO 01/20/18 18:52 Completed IV [ED IV/MEDIPORT/POWERPORT] .ONCE EMERGENCY 01/20/18 18:52 Active O2 [ED APPLY O2] .ONCE EMERGENCY 01/20/18 18:53 Active AMYLASE Stat LAB 01/20/18 19:08 Received CBC W/ AUTO DIFF Stat LAB 01/20/18 19:08 Received COMPREHENSIVE METABOLIC PANEL Stat LAB 01/20/18 19:08 Received CREATINE KINASE Stat LAB 01/20/18 19:08 Received D-DIMER Stat LAB 01/20/18 19:08 Received LIPASE Stat LAB 01/20/18 19:08 Received TROPONIN I Stat LAB 01/20/18 19:08 Received 0.9 % Sodium Chloride [Saline Flush] MEDS 01/20/18 18:52 Ordered 1 syr IVF PRN PRN Morphine Sulfate [Morphine 2 mg/ml Syringe] MEDS 01/20/18 19:14 Ordered 2 mg IVP Q4H PRN Nitroglycerin [Nitrostat] MEDS 01/20/18 18:52 Discontinued 0.4 mg SL ONCE STA Ondansetron HCl/Pf [Zofran 4 mg/2 ml] MEDS 01/20/18 19:14 Discontinued 4 mg IVP ONCE STA CXR [CHEST, 1V AP ONLY] Stat RADS 01/20/18 18:59 Completed Medications Generic Name Dose Route Start Last Admin Trade Name Freq PRN Reason Stop Dose Admin Morphine Sulfate 2 mg 01/20/18 19:14 Morphine 2 Mg/Ml Syringe IVP Q4H PRN Chest Pain Sodium Chloride 1 syr 01/20/18 18:52 01/20/18 19:18 Saline Flush IVF 1 syr PRN PRN Administration To flush IV Discontinued Medications Generic Name Dose Route Start Last Admin Trade Name Freq PRN Reason Stop Dose Admin Nitroglycerin 0.4 mg 01/20/18 18:52 01/20/18 19:17 Nitrostat SL 01/20/18 18:53 0.4 mg ONCE STA Administration Ondansetron HCl 4 mg 01/20/18 19:14 01/20/18 19:22 Zofran 4 Mg/2 Ml IVP 01/20/18 19:15 4 mg ONCE STA Administration Vital Signs: Temp Pulse Resp BP Pulse Ox 01/20/18 18:51 97.8 F 107 H 18 132/91 H 96 ROGELIO Risk Score ROGELIO Risk Score: Risk Score Odds of by 30D 0 0.1 (0.1-0.2) 1 0.3 (0.2-0.3) 2 0.4 (0.3-0.5) 3 0.7 (0.6-0.9) 4 1.2 (1.0-1.5) 5 2.2 (1.9-2.6) 6 3.0 (2.5-3.6) 7 4.8 (3.8-6.1) Departure - Departure Time of Disposition: 19:24 Disposition: TSF SHORT-TRM HOSP Discharge Problem: Chest pain Instructions: Chest Pain (ED) Condition: Good Pt referred to PMD for follow-up: Yes IPMP verified?: No Allergies/Adverse Reactions: Allergies No Known Allergies Allergy (Verified 01/20/18 19:10) Home Medications: Ambulatory Orders Propranolol HCl [Inderal] 20 mg PO DAILY 03/28/13 Rivaroxaban [Xarelto] 20 mg PO DAILY 04/20/17 Bupropion HCl [Wellbutrin Xl] 300 mg PO DAILY 01/20/18 Oxcarbazepine [Trileptal] 600 mg PO BID 01/20/18 Quetiapine Fumarate [Seroquel Xr] 150 mg PO BEDTIME 01/20/18 Transfer Form Completed: Yes Disposition Discussed With: Patient
[2018-01-20] MEDS ORDERED: ZOFRAN 4 MG/2 ML IVP STA (19:14)
[2018-01-20] MEDS ORDERED: MORPHINE 2 MG/ML SYRINGE IVP PRN (19:14)
[2018-01-20] MEDS ORDERED: MORPHINE 2 MG/ML SYRINGE ONE (19:21)
--- NOTE | 2018-01-20 19:21 | DI ---
EXAM: CHEST FRONTAL VIEW HISTORY: Chest pain. COMPARISON: 01/31/2016 FINDINGS: Heart size and mediastinum remain within normal limits. Lungs are free of infiltrate. No consolidation or pleural fluid. There is no pneumothorax or acute bony finding. IMPRESSION: Findings within normal limits.
== END 2018-01-20 19:50 | disposition short-term general hospital (02) ==
LOC: ED 18:50 → MEDSURG B 19:25 → UNDOADMIN 19:25 → ED 19:50
DX: R07.9 Chest pain, unspecified (principal); D68.51 Activated protein C resistance; Z87.442 Personal history of urinary calculi
CPT/HCPCS: 36415; 80053; 82150; 82550; 83690; 84484; 85025; 85379; 93005; 93010; 96374; 96375; 99284

== ENCOUNTER 2018-01-20 19:50 | Outpatient (CLI) ==
[2013-03-28 12:14] VITALS: TEMP 98.6
[2018-01-20 19:00] VITALS: BMI 39.4
== END 2018-01-20 19:51 | disposition short-term general hospital (02) ==
LOC: AMBL 19:50
PROVIDERS: ATTEND Family Medicine
DX: R07.1 Chest pain on breathing (principal); Z86.711 Personal history of pulmonary embolism

== ENCOUNTER 2018-03-17 12:25 | Emergency (ER) ==
[2018-03-17 12:34] VITALS: BP 122/86; TEMP 97.9; BMI 39.6
--- NOTE | 2018-03-17 12:59 | ED.PDOC ---
General ED Provider: Dr. AMIE CLARKE Chief Complaint: Rash Stated Complaint: tingling numbness bilateral hands Time Seen by Physician: 12:33 Mode of Arrival: Walk-In Information Source: Patient Exam Limitations: No limitations Primary Care Provider: ALON JOHNSON Nursing and Triage Documentation Reviewed and Agree: Yes Reviewed sepsis parameters & appropriate labs ordered?: Yes System Inflammatory Response Syndrome: Not Applicable Sepsis Protocol: For patient's 13 years and over: Temp is 96.8 and below OR 101 and greater Pulse >90 BPM Resp >20/minute Acutely Altered Mental Status Are patient's symptoms suggestive of a new infection, such as: -Pneumonia -Skin, Soft Tissue -Endocarditis -UTI -Bone, Joint Infection -Implantable Device -Acute Abdominal Infection -Wound Infection -Meningitis -Blood Stream Catheter Infection -Unknown Musculoskeletal Complaint Exam - Hand/Wrist Complaint/Exam Location of Pain: Reports: Right, Left, Hand Mechanism of Injury: Reports: No known trauma Onset/Duration: 1 week bilateral hand numbness Symptoms Are: Still present Onset of Pain: Reports: Days Initial Severity: Mild Current Severity: Mild Location: Reports: Discrete Character: Reports: Dull Alleviating: Reports: Rest Aggravating: Reports: Movement Associated Signs and Symptoms: Reports: Swelling, Tingling. Denies: Redness, Bruising, Fever, Weakness, Numbness Related History: Reports: Similar episode Dominant Hand: Right Related Surgical History: Reports: None Hand/Wrist Findings: Present: Swelling Tenderness: Present: Phalanx. Absent: Radius, Ulna, Snuff box, Carpal, Metacarpal Compartment Syndrome Risk Factors: Present: Pain Differential Diagnoses: Carpal Tunnel Syndrome Review of Systems - Review Of Systems Constitutional: Reports: No symptoms Eyes: Reports: No symptoms Ears, Nose, Mouth, Throat: Reports: No symptoms Respiratory: Reports: No symptoms Cardiac: Reports: No symptoms GI: Reports: No symptoms : Reports: No symptoms Musculoskeletal: Reports: Other (pain numbness over median nerve distributions) Skin: Reports: No symptoms Neurological: Reports: No symptoms Endocrine: Reports: No symptoms Hematologic/Lymphatic: Reports: No symptoms All Other Systems: Reviewed and Negative Past Medical History - Past Medical History Previously Healthy: No Endocrine: Reports: None Cardiovascular: Reports: None Respiratory: Reports: None, PE 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) Gastrointestinal: Reports: None Genitourinary: Reports: Kidney stones, Other (Just off 15 day period; felt weak afterwards.) Neuro/Psych: Reports: Migraine, Anxiety, Depression Musculoskeletal: Reports: None Cancer: Reports: None Last Menstrual Period: FEBRUARY 26, 2018 Other Pertinent Past Medical History: FACTOR 5 - Surgical History General Surgical History: Reports: Tubal ligation, Cholecystectomy, Other (D&C) - Family History Family History: Reports: Unknown - Social History Smoking Status: Former smoker Hx Substance Use: No Alcohol Screening: None - Immunizations Influenza Vaccine within 12 Months: No Pneumococcal Vaccine up to Date: No Physical Exam - Physical Exam Appearance: Well-appearing, No pain distress, Well-nourished Eyes: BEE, EOMI, Conjunctiva clear ENT: Ears normal, Nose normal, Oropharynx normal Respiratory: Airway patent, Breath sounds clear, Breath sounds equal, Respirations nonlabored Cardiovascular: RRR, Pulses normal, No rub, No murmur GI/: Soft, Nontender, No masses, Bowel sounds normal, No Organomegaly Musculoskeletal: Normal strength (numbness over median nerve distribution) Skin: Warm, Dry, Normal color Neurological: Sensation intact, Motor intact, Reflexes intact, Cranial nerves intact, Alert, Oriented Psychiatric: Affect appropriate, Mood appropriate Critical Care Note - Critical Care Note Total Time (mins): 0 Course - Course Vital Signs: Temp Pulse Resp BP Pulse Ox 03/17/18 12:28 97.9 F 84 16 122/86 97 Departure - Departure Time of Disposition: 13:00 (with [employer] STUDENT [facility] AT ALL TIMES NOTED PT HAS NUMBNESS OVER MEDIAN NERVE DISTRIBUTION) Disposition: HOME SELF-CARE Discharge Problem: Carpal tunnel syndrome Qualifiers: Laterality: bilateral Qualified Code(s): G56.03 - Carpal tunnel syndrome, bilateral upper limbs Instructions: Paresthesia (ED) Condition: Good Pt referred to PMD for follow-up: Yes IPMP verified?: No Additional Instructions: Please call your Family Physician as soon as possible to schedule a follow-up appointment.THIS FORM OF NUMBNESS IS MOST CONSISTENT WITH CARPAL TUNNEL SYNDROME YOU WILL BE BEST SERVED BY [facility] STUD[facility] SEE YOUR MD FOR FOR FURTHER REFERRAL Allergies/Adverse Reactions: Allergies No Known Allergies Allergy (Verified 03/17/18 12:27) Home Medications: Ambulatory Orders Propranolol HCl [Inderal] 20 mg PO DAILY 03/28/13 Rivaroxaban [Xarelto] 20 mg PO DAILY 04/20/17 Quetiapine Fumarate [Seroquel Xr] 150 mg PO BEDTIME 01/20/18 Benztropine Mesylate 1 mg PO BEDTIME 03/17/18 Disposition Discussed With: Patient
== END 2018-03-17 13:20 | disposition home or self-care (01) ==
LOC: ED 12:25
DX: G56.03 Carpal tunnel syndrome, bilateral upper limbs (principal)
CPT/HCPCS: 99282

== ENCOUNTER 2018-07-18 15:36 | Emergency (ER) ==
[2018-07-18 15:42] VITALS: TEMP 98.5
[2018-07-18 15:53] VITALS: BP 142/95; BMI 39.2
[2018-07-18] MEDS ORDERED: ATIVAN IM STA (15:56)
[2018-07-18] MEDS ORDERED: ATIVAN 1 ML ONE (16:03)
--- NOTE | 2018-07-18 16:51 | ED.PDOC ---
General ED Provider: Dr. AMIE CLARKE Chief Complaint: Behavioral Complaint Stated Complaint: ANXIOUS, TEARFULL Time Seen by Physician: 15:39 (SEEN WITH DANIEL ) Mode of Arrival: Walk-In Information Source: Patient Exam Limitations: No limitations Primary Care Provider: ALON JOHNSON Nursing and Triage Documentation Reviewed and Agree: Yes Does patient meet sepsis criteria?: No System Inflammatory Response Syndrome: Not Applicable Sepsis Protocol: For patient's 13 years and over: Temp is 96.8 and below OR 101 and greater Pulse >90 BPM Resp >20/minute Acutely Altered Mental Status Are patient's symptoms suggestive of a new infection, such as: -Pneumonia -Skin, Soft Tissue -Endocarditis -UTI -Bone, Joint Infection -Implantable Device -Acute Abdominal Infection -Wound Infection -Meningitis -Blood Stream Catheter Infection -Unknown Psychological Complaint Exam - Psychiatric Complaint/Exam Patient Complains Of: Present: Other (ANXIOUS , WHOULD NO ELABORATE WHY DANIEL PRESENT AT ALL TIME THIS IS A CHRONIC ISSUE) Symptoms Are: Still present Timing: Intermittent Episodes Lasting: Weeks Initial Severity: Severe Current Severity: Severe Character: Present: Depressed, Anxious, Frustrated Aggravating: Reports: None Associated Signs And Symptoms: Denies: Hostile, Confused, Hallucinating, Paranoid behavior, Sleep disturbance, Appetite change Related History: Denies: Suicidal thoughts, Suicidal plan, Suicidal gestures Completed Suicide Risk Factors: None Patient In Custody Of Police: No Social Withdrawal Present: No Social Isolation Present: No Prior Suicide Attempt: No Injury From Prior Suicide Attempt: No Related Surgical History: Reports: None Patient Uncooperative For Exam: No Mood: Present: Anxious Appearance: Present: Clean Thought Process: Present: Logical Insight: Present: Good Memory: Intact Judgement: Normal Danger To Others: No Patient Medically Stable For: Psych evaluation Differential Diagnoses: Anxiety Review of Systems - Review Of Systems Constitutional: Reports: No symptoms Eyes: Reports: No symptoms Ears, Nose, Mouth, Throat: Reports: No symptoms Respiratory: Reports: No symptoms Cardiac: Reports: No symptoms GI: Reports: No symptoms : Reports: No symptoms Musculoskeletal: Reports: No symptoms Skin: Reports: No symptoms Neurological: Reports: Emotional problems Endocrine: Reports: No symptoms Hematologic/Lymphatic: Reports: No symptoms All Other Systems: Reviewed and Negative Past Medical History - Past Medical History Previously Healthy: No Endocrine: Reports: None Cardiovascular: Reports: None Respiratory: Reports: None, PE 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) Gastrointestinal: Reports: None Genitourinary: Reports: Kidney stones, Other (Just off 15 day period; felt weak afterwards.) Neuro/Psych: Reports: Migraine, Anxiety, Depression Musculoskeletal: Reports: None Cancer: Reports: None Last Menstrual Period: 1 week ago Other Pertinent Past Medical History: FACTOR 5 - Surgical History General Surgical History: Reports: Tubal ligation, Cholecystectomy, Other (D&C) - Family History Family History: Reports: Unknown - Social History Smoking Status: Former smoker Hx Substance Use: No Alcohol Screening: None - Immunizations Influenza Vaccine within 12 Months: No Pneumococcal Vaccine up to Date: No Physical Exam - Physical Exam Appearance: Well-appearing, No pain distress, Well-nourished Eyes: BEE, EOMI, Conjunctiva clear ENT: Ears normal, Nose normal, Oropharynx normal Respiratory: Airway patent, Breath sounds clear, Breath sounds equal, Respirations nonlabored Cardiovascular: RRR, Pulses normal, No rub, No murmur GI/: Soft, Nontender, No masses, Bowel sounds normal, No Organomegaly Musculoskeletal: Normal strength, ROM intact, No edema, No calf tenderness Skin: Warm, Dry, Normal color Neurological: Sensation intact, Motor intact, Reflexes intact, Cranial nerves intact, Alert, Oriented Psychiatric: Affect appropriate, Mood appropriate Critical Care Note - Critical Care Note Total Time (mins): 0 Course - Course Orders, Labs, Meds: Orders Category Date Time Status Lorazepam Inj [Ativan] MEDS 07/18/18 15:56 Discontinued 1 mg IM ONCE STA Lorazepam [Ativan] 1 ml MEDS 07/18/18 16:03 Discontinued .ROUTE .STK-MED Medications Discontinued Medications Generic Name Dose Route Start Last Admin Trade Name Freq PRN Reason Stop Dose Admin Lorazepam 1 mg 07/18/18 15:56 07/18/18 16:05 Ativan IM 07/18/18 15:57 1 mg ONCE STA Administration Vital Signs: Temp Pulse Resp BP Pulse Ox 07/18/18 15:37 98.5 F 89 24 142/95 H 98 Departure - Departure Time of Disposition: 16:51 (WITH DANIEL I ASKED THE PT IS SHE WOULD LIKE TO TALK TO MENTAL MARINE SHE SAID NO, E/D TECH WAS PRESENT ALL TIMES ) Disposition: HOME SELF-CARE Discharge Problem: Anxiety Instructions: Anxiety (ED) Condition: Good Pt referred to PMD for follow-up: Yes IPMP verified?: No Additional Instructions: Please call your Family Physician as soon as possible to schedule a follow-up appointment. Allergies/Adverse Reactions: Allergies No Known Allergies Allergy (Verified 07/18/18 15:42) Home Medications: Ambulatory Orders 1 [No Reported Medications] 07/18/18
== END 2018-07-18 17:00 | disposition home or self-care (01) ==
LOC: ED 15:36
DX: F41.9 Anxiety disorder, unspecified (principal)
CPT/HCPCS: 96372; 99282

== ENCOUNTER 2018-11-05 16:22 | Emergency (ER) ==
[2018-11-05 16:35] VITALS: BP 130/89; TEMP 98.7; BMI 39.4
[2018-11-05] MEDS ORDERED: DILAUDID 1 MG/ML SYRINGE IM STA (16:39)
[2018-11-05] MEDS ORDERED: PHENERGAN 25 MG/ML VIAL IM STA (16:40)
[2018-11-05] MEDS ORDERED: DILAUDID 1 MG/ML SYRINGE ONE (16:59)
--- NOTE | 2018-11-05 17:38 | CT ---
The exam: CT of the abdomen and pelvis without contrast History: Left upper quadrant pain Technique: [address] of the abdomen and pelvis without intravascular contrast FINDINGS: The lung bases are clear. Prior cholecystectomy. No significant liver abnormality. The adrenals, pancreas and spleen are unremarkable. The stomach and hiatus are unremarkable. Kidneys an d proximal collecting system are unremarkable. The appendix is normal. Bowel loops demonstrate norm al caliber. No inflamatory change seen in the mesentery or retroperitoneum. Nonobstructing 3 mm pepito culus in the right kidney. The kidneys and collecting system are unremarkable otherwise. Ventral he rnia superior to the umbilicus with a 4.5 cm defect. Small fluid in the hernia sac. Minor atheroscl erotic calcification of the aorta without aneurysm. Pelvic genitourinary structures appear normal. Pelvic bowel loops are unremarkable. No inflammatory change in the pelvic fat. No acute abnormality of the abdominal or pelvic skeleton. Impression: 1. No inflammatory process, bowel or urinary obstruction is seen. 2. Single nonobstructing calculus in the right kidney 3. Supraumbilical ventral hernia containing fat and small fluid.
--- NOTE | 2018-11-05 17:44 | ED.PDOC ---
General ED Provider: Dr. RUBIN LAM-ER Chief Complaint: Abdominal Pain Stated Complaint: im hurting Time Seen by Physician: 16:30 Mode of Arrival: Walk-In Information Source: Patient Exam Limitations: No limitations Primary Care Provider: ALON JOHNSON Nursing and Triage Documentation Reviewed and Agree: Yes Does patient meet sepsis criteria?: No System Inflammatory Response Syndrome: Not Applicable Sepsis Protocol: For patient's 13 years and over: Temp is 96.8 and below OR 101 and greater Pulse >90 BPM Resp >20/minute Acutely Altered Mental Status Are patient's symptoms suggestive of a new infection, such as: -Pneumonia -Skin, Soft Tissue -Endocarditis -UTI -Bone, Joint Infection -Implantable Device -Acute Abdominal Infection -Wound Infection -Meningitis -Blood Stream Catheter Infection -Unknown GI Complaint Exam - Abdominal Pain Complaint/Exam Onset: Gradual Duration: several days Symptoms Are: Still present Timing: Constant Initial Severity: Mild Current Severity: Mild Location of Pain: Discrete Character: Reports: Dull, Aching Alleviating: Reports: None Associated Signs and Symptoms: Denies: Diaphoresis, Fever, Cough, Chest pain, Dizziness, Back pain, Constipation, Blood in stool, Dysuria, Urinary frequency, Decreased urine output, Decreased appetite, Vaginal bleeding, Vaginal discharge , Nausea, Vomiting, Diarrhea, Sore throat, Decreased activity Review of Systems - Review Of Systems Constitutional: Reports: No symptoms Eyes: Reports: No symptoms Ears, Nose, Mouth, Throat: Reports: No symptoms Respiratory: Reports: No symptoms Cardiac: Reports: No symptoms GI: Reports: Abdominal pain : Reports: No symptoms Musculoskeletal: Reports: No symptoms Skin: Reports: No symptoms Neurological: Reports: No symptoms Endocrine: Reports: No symptoms Hematologic/Lymphatic: Reports: No symptoms All Other Systems: Reviewed and Negative Past Medical History - Past Medical History Previously Healthy: No Endocrine: Reports: None Cardiovascular: Reports: None Respiratory: Reports: None, PE 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) Gastrointestinal: Reports: None Genitourinary: Reports: Kidney stones, Other (Just off 15 day period; felt weak afterwards.) Neuro/Psych: Reports: Migraine, Anxiety, Depression Musculoskeletal: Reports: None Cancer: Reports: None Last Menstrual Period: 3 weeks Other Pertinent Past Medical History: FACTOR 5 - Surgical History General Surgical History: Reports: Tubal ligation, Cholecystectomy, Other (D&C) - Family History Family History: Reports: Unknown - Social History Smoking Status: Current some day smoker Hx Substance Use: Yes (today smoke TEVIZZ) Alcohol Screening: Occasionally - Immunizations Tetanus Shot up to Date: Yes Influenza Vaccine within 12 Months: No Pneumococcal Vaccine up to Date: No Physical Exam - Physical Exam Appearance: Well-appearing Pain Distress: Mild Eyes: BEE, EOMI, Conjunctiva clear ENT: Ears normal, Nose normal, Oropharynx normal Neck: Supple Respiratory: Airway patent, Breath sounds clear, Breath sounds equal, Respirations nonlabored Cardiovascular: RRR, Pulses normal, No rub, No murmur GI/: Soft, No masses, Bowel sounds normal, No Organomegaly, Tender Musculoskeletal: Normal strength, ROM intact, No edema, No calf tenderness Skin: Warm, Dry, Normal color Neurological: Sensation intact, Motor intact, Reflexes intact, Cranial nerves intact, Alert, Oriented Psychiatric: Affect appropriate, Mood appropriate Interpretation - Radiology Interpretation Radiology Interpretation By: Radiologist Radiology Results: Positive Exam Interpreted: CT Scan Critical Care Note - Critical Care Note Total Time (mins): 0 Course - Course Hematology/Chemistry: 11/05/18 16:48 11/05/18 16:48 Orders, Labs, Meds: Lab Review 11/05/18 11/05/18 11/05/18 16:41 16:48 16:48 WBC 8.68 RBC 4.50 Hgb 14.7 Hct 43.2 MCV 96.0 MCH 32.7 H MCHC 34.0 RDW Coeff of Rainer 13.1 Plt Count 396 Immature Gran % (Auto) 0.2 Neut % (Auto) 62.7 Lymph % (Auto) 27.1 [place] % (Auto) 7.8 Eos % (Auto) 1.6 Baso % (Auto) 0.6 Immature Gran # (Auto) 0.0 Neut # (Auto) 5.4 Lymph # (Auto) 2.4 [place] # (Auto) 0.7 Eos # (Auto) 0.1 Baso # (Auto) 0.1 ESR 7 Sodium 141.2 Potassium 4.31 Chloride 108.6 H Carbon Dioxide 23.4 Anion Gap 13.51 BUN 12.4 Creatinine 0.58 L Estimated GFR (MDRD) 120.00 BUN/Creatinine Ratio 21.37 Glucose 89.7 Calcium 9.13 Total Bilirubin 0.65 AST 21.3 ALT 19.2 Alkaline Phosphatase 74.1 Total Protein 7.38 Albumin 4.18 Globulin 3.20 Albumin/Globulin Ratio 1.30 Amylase 35.4 Lipase 76.3 Urine Color Yellow Urine Clarity Slightly Urine pH 8.0 Ur Specific [place] 1.020 Urine Protein Negative Urine Glucose (UA) Negative Urine Ketones Negative Urine Blood Negative Urine Nitrite Negative Urine Bilirubin Negative Urine Urobilinogen 0.2 Ur Leukocyte Esterase Negative Ur Squamous Epith Cells 5-10 Amorphous Sediment 2+ Orders Category Date Time Status AMYLASE Stat LAB 11/05/18 16:48 Completed CBC W/ AUTO DIFF Stat LAB 11/05/18 16:48 Completed COMPREHENSIVE METABOLIC PANEL Stat LAB 11/05/18 16:48 Completed ESR Stat LAB 11/05/18 16:48 Completed LIPASE Stat LAB 11/05/18 16:48 Completed URINALYSIS C & S IF INDICATED Stat LAB 11/05/18 16:41 Completed Hydromorphone HCl [Dilaudid 1 mg/ml Syringe] MEDS 11/05/18 16:39 Discontinued 2 mg IM ONCE STA Promethazine HCl [Phenergan 25 mg/ml Vial] MEDS 11/05/18 16:40 Discontinued 25 mg IM ONCE STA CT ABDOMEN/PELVIS WO CONTRAST Stat RADS 11/05/18 16:39 Completed Medications Discontinued Medications Generic Name Dose Route Start Last Admin Trade Name Freq PRN Reason Stop Dose Admin Hydromorphone HCl 2 mg 11/05/18 16:39 11/05/18 16:51 Dilaudid 1 Mg/Ml Syringe IM 11/05/18 16:40 2 mg ONCE STA Administration Promethazine HCl 25 mg 11/05/18 16:40 11/05/18 16:50 Phenergan 25 Mg/Ml Vial IM 11/05/18 16:41 25 mg ONCE STA Administration Vital Signs: Temp Pulse Resp BP Pulse Ox 11/05/18 16:24 98.7 F 86 16 130/89 95 Departure - Departure Time of Disposition: 17:43 Disposition: HOME SELF-CARE Discharge Problem: Ventral hernia Qualifiers: Obstruction and gangrene presence: without obstruction or gangrene Qualified Code(s): K43.9 - Ventral hernia without obstruction or gangrene Instructions: Ventral Hernia (ED) Condition: Good Pt referred to PMD for follow-up: Yes IPMP verified?: No Additional Instructions: talk to your surgeon tomorrow about the ct scan findings Allergies/Adverse Reactions: Allergies No Known Allergies Allergy (Verified 11/05/18 16:33) Home Medications: Ambulatory Orders 1 [No Reported Medications] 07/18/18 Disposition Discussed With: Patient, Family
== END 2018-11-05 18:01 | disposition home or self-care (01) ==
LOC: ED 16:22
DX: K43.9 Ventral hernia without obstruction or gangrene (principal); F17.210 Nicotine dependence, cigarettes, uncomplicated; Z87.442 Personal history of urinary calculi; Z86.711 Personal history of pulmonary embolism; D68.51 Activated protein C resistance
CPT/HCPCS: 36415; 80053; 81001; 82150; 83690; 85025; 85651; 96372; 99283

== ENCOUNTER 2019-01-15 15:37 | Emergency (ER) ==
[2019-01-15 15:40] VITALS: BP 154/116; TEMP 99.6; BMI 39.5
[2019-01-15] MEDS ORDERED: NORFLEX IM STA (16:03)
[2019-01-15] MEDS ORDERED: TORADOL IM STA (16:03)
--- NOTE | 2019-01-15 17:17 | ED.PDOC ---
General ED Provider: Dr. AMIE CLARKE Chief Complaint: Hip Pain/Injury Stated Complaint: left hip pain Time Seen by Physician: 15:55 (seen with RN PRESENT AT ALL TIMES ) Mode of Arrival: Walk-In Information Source: Patient Exam Limitations: No limitations Nursing and Triage Documentation Reviewed and Agree: Yes Does patient meet sepsis criteria?: No System Inflammatory Response Syndrome: Not Applicable Sepsis Protocol: For patient's 13 years and over: Temp is 96.8 and below OR 101 and greater Pulse >90 BPM Resp >20/minute Acutely Altered Mental Status Are patient's symptoms suggestive of a new infection, such as: -Pneumonia -Skin, Soft Tissue -Endocarditis -UTI -Bone, Joint Infection -Implantable Device -Acute Abdominal Infection -Wound Infection -Meningitis -Blood Stream Catheter Infection -Unknown Musculoskeletal Complaint Exam - Hip/Pelvis Complaint/Exam Location of Pain: Reports: Left, Hip Mechanism of Injury: Reports: No known trauma Onset/Duration: 1 HR AGO Symptoms Are: Still present Initial Severity: Moderate Current Severity: Mild Location: Reports: Discrete Character: Reports: Aching, Spasmodic Aggravating: Reports: Movement Alleviating: Reports: Rest Associated Signs and Symptoms: Denies: Swelling, Redness, Bruising, Fever, Weakness, Dizziness, Syncope, Abdominal pain, Knee pain Related History: Reports: Similar episode Able to Bear Weight: Yes Related Surgical History: Reports: None Pelvis Palpation: Stable Range of Motion Limited In: Present: Abduction. Absent: Flexion, Extension Differential Diagnoses: Fracture, Sprain, Strain Review of Systems - Review Of Systems Constitutional: Reports: No symptoms Eyes: Reports: No symptoms Ears, Nose, Mouth, Throat: Reports: No symptoms Respiratory: Reports: No symptoms Cardiac: Reports: No symptoms GI: Reports: No symptoms : Reports: No symptoms Musculoskeletal: Reports: Joint pain (HIP PAIN) Skin: Reports: No symptoms Neurological: Reports: No symptoms Endocrine: Reports: No symptoms Hematologic/Lymphatic: Reports: No symptoms All Other Systems: Reviewed and Negative Past Medical History - Past Medical History Previously Healthy: No Endocrine: Reports: None Cardiovascular: Reports: None Respiratory: Reports: None, PE 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) Gastrointestinal: Reports: None Genitourinary: Reports: Kidney stones, Other (Just off 15 day period; felt weak afterwards.) Neuro/Psych: Reports: Migraine, Anxiety, Depression Musculoskeletal: Reports: None Cancer: Reports: None Last Menstrual Period: 1 WEEK AGO Other Pertinent Past Medical History: FACTOR 5 - Surgical History General Surgical History: Reports: Tubal ligation, Cholecystectomy, Other (D&C) - Family History Family History: Reports: Unknown - Social History Smoking Status: Current some day smoker Hx Substance Use: Yes (today smoke dough) Alcohol Screening: Occasionally - Immunizations Influenza Vaccine within 12 Months: No Pneumococcal Vaccine up to Date: No Physical Exam - Physical Exam Appearance: Well-appearing, No pain distress, Well-nourished Eyes: BEE, EOMI, Conjunctiva clear ENT: Ears normal, Nose normal, Oropharynx normal Respiratory: Airway patent, Breath sounds clear, Breath sounds equal, Respirations nonlabored Cardiovascular: RRR, Pulses normal, No rub, No murmur GI/: Soft, Nontender, No masses, Bowel sounds normal, No Organomegaly Musculoskeletal: Normal strength, ROM intact, No edema, No calf tenderness Skin: Warm, Dry, Normal color Neurological: Sensation intact, Motor intact, Reflexes intact, Cranial nerves intact, Alert, Oriented Psychiatric: Affect appropriate, Mood appropriate Critical Care Note - Critical Care Note Total Time (mins): 0 Course - Course Orders, Labs, Meds: Lab Review 01/15/19 16:17 Serum , Qual Negative Orders Category Date Time Status SERUM Stat LAB 01/15/19 16:17 Completed Ketorolac Tromethamine [Toradol] MEDS 01/15/19 16:03 Discontinued 60 mg IM ONCE STA Orphenadrine Citrate [Norflex] MEDS 01/15/19 16:03 Discontinued 60 mg IM ONCE STA CT PELVIS W/O CONTRAST Stat RADS 01/15/19 16:02 Ordered Medications Discontinued Medications Generic Name Dose Route Start Last Admin Trade Name Freq PRN Reason Stop Dose Admin Ketorolac Tromethamine 60 mg 01/15/19 16:03 01/15/19 16:28 Toradol IM 01/15/19 16:04 60 mg ONCE STA Administration Orphenadrine Citrate 60 mg 01/15/19 16:03 01/15/19 16:30 Norflex IM 01/15/19 16:04 60 mg ONCE STA Administration Vital Signs: Temp Pulse Resp BP Pulse Ox 01/15/19 15:38 99.6 F 95 H 20 154/116 H 96 Departure - Departure Time of Disposition: 17:40 (D/C INFO GIVEN WITH CARLOS ) Disposition: HOME SELF-CARE Discharge Problem: Hip pain Instructions: Hip Sprain (ED) Condition: Good Pt referred to PMD for follow-up: Yes IPMP verified?: No Prescriptions: Hydrocodone/Acetaminophen [[place] 10-325 Tablet] 1 each PO Q8HR #7 tablet Allergies/Adverse Reactions: Allergies No Known Allergies Allergy (Verified 01/15/19 15:40) Home Medications: Ambulatory Orders Hydrocodone/Acetaminophen [Moriches 10-325 Tablet] 1 each PO Q8HR #7 tablet
--- NOTE | 2019-01-15 17:47 | CT ---
EXAM: CT pelvis without contrast. HISTORY: Pain left hip. [place] a pop. PROCEDURE: Contiguous axial CT images of the pelvis without contrast with coronal and sagittal refor mats. FINDINGS: The bones are intact with no evidence of fracture. The joint spaces are maintained. There is a 2.7 cm fluid density cyst in the left adnexa. The uterus is unremarkable. The visualized loop s of bowel are normal in appearance. No free fluid or free air in the pelvis. The bladder is adequa tely filled. There is minimal air in the bladder. Impression: No evidence of fracture. Minimal air in the bladder consistent with infection versus recent Ta catheter placement. 2.7 cm simple left adnexal cyst.
== END 2019-01-15 18:03 | disposition home or self-care (01) ==
LOC: ED 15:37
DX: M25.552 Pain in left hip (principal); Z72.0 Tobacco use
CPT/HCPCS: 36415; 84703; 96372; 99283

== ENCOUNTER 2019-02-26 08:19 | Emergency (ER) ==
[2019-02-26 08:28] VITALS: BP 134/101; TEMP 99.6; BMI 38.9
[2019-02-26 09:27] LABS: URINE PREGNANCY TEST NEGATIVE (NEGATIVE)
[2019-02-26] MEDS ORDERED: ZOFRAN 4 MG/2 ML IM STA (09:31)
--- NOTE | 2019-02-26 10:35 | DI ---
EXAM: Chest two views HISTORY: Cough COMPARISON: 01/20/2018 TECHNIQUE: Two views of the chest were performed FINDINGS: The lungs are clear. There is no pleural effusion or pneumothorax. The heart is normal i n size. The mediastinal contour is normal. There are no acute abnormalities of the bones. IMPRESSION: No acute cardiopulmonary process.
--- NOTE | 2019-02-26 10:49 | CT ---
EXAM: CT abdomen pelvis without contrast HISTORY: Vomiting since yesterday, left upper quadrant abdominal pain, history of kidney stones COMPARISON: 11/05/2018 TECHNIQUE: CT abdomen pelvis performed without intravenous contrast. Coronal and sagittal reformatt ed images obtained. FINDINGS: Lung bases clear. No free air. No acute abnormalities of the bones. Heart normal in si ze. Evaluation organ parenchyma limited without contrast. Liver appears normal. Patient status pos t cholecystectomy. Pancreas appears normal. Spleen appears normal. Adrenals appear normal. Kidney s appear normal without hydronephrosis or nephrolithiasis. No calculi visualized in normal course of the ureters. Uterus unremarkable. Aorta normal in caliber. Very mild atherosclerotic calcificatio n. Postsurgical changes in the anterior wall suggested. Stomach unremarkable. No dilated loops sma ll bowel. Appendix appears normal. Colon unremarkable. Colonic calcification in the right pelvis a round image 125 appears new from prior examination, possibly within the distal right ureter. No hydr oureternephrosis no inflammatory stranding identified in the abdomen pelvis. IMPRESSION: 4 mm calcification in the right pelvis, possibly within the distal right ureter. No hyd roureternephrosis.
--- NOTE | 2019-02-26 11:39 | ED.PDOC ---
General ED Provider: Dr. AMIE CLARKE Chief Complaint: Nausea/Vomiting Stated Complaint: ABDOMINAL PAIN Time Seen by Physician: 09:00 Mode of Arrival: Walk-In Information Source: Patient Exam Limitations: No limitations Nursing and Triage Documentation Reviewed and Agree: Yes Does patient meet sepsis criteria?: No If yes, has appropriate treatment been initiated?: No System Inflammatory Response Syndrome: Not Applicable Sepsis Protocol: For patient's 13 years and over: Temp is 96.8 and below OR 101 and greater Pulse >90 BPM Resp >20/minute Acutely Altered Mental Status Are patient's symptoms suggestive of a new infection, such as: -Pneumonia -Skin, Soft Tissue -Endocarditis -UTI -Bone, Joint Infection -Implantable Device -Acute Abdominal Infection -Wound Infection -Meningitis -Blood Stream Catheter Infection -Unknown GI Complaint Exam - Abdominal Pain Complaint/Exam Onset: Gradual Symptoms Are: Still present Initial Severity: Mild Current Severity: Mild Location of Pain: Diffuse Character: Reports: Dull Aggravating: Reports: None Alleviating: Reports: None Associated Signs and Symptoms: Reports: Nausea, Vomiting, Diarrhea. Denies: Diaphoresis, Fever, Cough, Chest pain, Dizziness, Back pain, Constipation, Blood in stool, Dysuria, Urinary frequency, Decreased urine output, Decreased appetite, Vaginal bleeding, Vaginal discharge, Sore throat, Decreased activity Related History: Reports: Similar episode AAA Risk Factors: Reports: None Cardiac Risk Factors: Reports: None Ectopic Risk Factors: Reports: Maternal age >30 Ovarian Torsion Risk Factors: Reports: None Surgical Obstruction Risk Factors: Reports: None Related Surgical History: Reports: None Patient Rh Status: Unknown Abdominal Findings: Present: None Review of Systems - Review Of Systems Constitutional: Reports: No symptoms Eyes: Reports: No symptoms Ears, Nose, Mouth, Throat: Reports: No symptoms Respiratory: Reports: No symptoms Cardiac: Reports: No symptoms GI: Reports: Abdominal pain : Reports: No symptoms Musculoskeletal: Reports: No symptoms Skin: Reports: No symptoms Neurological: Reports: No symptoms Endocrine: Reports: No symptoms Hematologic/Lymphatic: Reports: No symptoms All Other Systems: Reviewed and Negative Past Medical History - Past Medical History Previously Healthy: No Endocrine: Reports: None Cardiovascular: Reports: None Respiratory: Reports: None, PE 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) Gastrointestinal: Reports: None Genitourinary: Reports: Kidney stones, Other (Just off 15 day period; felt weak afterwards.) Neuro/Psych: Reports: Migraine, Anxiety, Depression Musculoskeletal: Reports: None Cancer: Reports: None Last Menstrual Period: 5 weeks ago Other Pertinent Past Medical History: FACTOR 5 - Surgical History General Surgical History: Reports: Tubal ligation, Cholecystectomy, Other (D&C) - Family History Family History: Reports: Unknown - Social History Smoking Status: Current some day smoker Hx Substance Use: Yes (today smoke marjuanna) Alcohol Screening: Occasionally - Immunizations Tetanus Shot up to Date: No Influenza Vaccine within 12 Months: No Pneumococcal Vaccine up to Date: No Physical Exam - Physical Exam Appearance: Well-appearing, No pain distress, Well-nourished Eyes: BEE, EOMI, Conjunctiva clear ENT: Ears normal, Nose normal, Oropharynx normal Respiratory: Airway patent, Breath sounds clear, Breath sounds equal, Respirations nonlabored Cardiovascular: RRR, Pulses normal, No rub, No murmur GI/: Soft, Nontender, No masses, Bowel sounds normal, No Organomegaly Musculoskeletal: Normal strength, ROM intact, No edema, No calf tenderness Skin: Warm, Dry, Normal color Neurological: Sensation intact, Motor intact, Reflexes intact, Cranial nerves intact, Alert, Oriented Psychiatric: Affect appropriate, Mood appropriate Critical Care Note - Critical Care Note Total Time (mins): 0 Course - Course Hematology/Chemistry: 02/26/19 09:22 02/26/19 09:22 Orders, Labs, Meds: Lab Review 02/26/19 02/26/19 02/26/19 08:52 08:52 09:22 WBC 7.97 RBC 4.28 Hgb 14.0 Hct 41.4 MCV 96.7 MCH 32.7 H MCHC 33.8 RDW Coeff of Rainer 12.3 Plt Count 349 Immature Gran % (Auto) 0.4 Neut % (Auto) 61.5 Lymph % (Auto) 28.4 Thomas % (Auto) 7.7 Eos % (Auto) 1.5 Baso % (Auto) 0.5 Immature Gran # (Auto) 0.0 Neut # (Auto) 4.9 Lymph # (Auto) 2.3 Thomas # (Auto) 0.6 Eos # (Auto) 0.1 Baso # (Auto) 0.0 Sodium Potassium Chloride Carbon Dioxide Anion Gap BUN Creatinine Estimated GFR (MDRD) BUN/Creatinine Ratio Glucose Calcium Total Bilirubin AST ALT Alkaline Phosphatase Total Protein Albumin Globulin Albumin/Globulin Ratio Amylase Lipase Urine Color Yellow Urine Clarity Clear Urine pH 5.5 Ur Specific [place] >=1.030 Urine Protein Negative Urine Glucose (UA) Negative Urine Ketones Negative Urine Blood Trace-lysed Urine Nitrite Negative Urine Bilirubin Negative Urine Urobilinogen 0.2 Ur Leukocyte Esterase Negative Urine Microscopic RBC 0-2 Ur Squamous Epith Cells 20-30 Urine Test Negative 02/26/19 09:22 WBC RBC Hgb Hct MCV MCH MCHC RDW Coeff of Rainer Plt Count Immature Gran % (Auto) Neut % (Auto) Lymph % (Auto) Thomas % (Auto) Eos % (Auto) Baso % (Auto) Immature Gran # (Auto) Neut # (Auto) Lymph # (Auto) Thomas # (Auto) Eos # (Auto) Baso # (Auto) Sodium 138.5 Potassium 3.89 Chloride 108.0 H Carbon Dioxide 23.0 Anion Gap 11.39 BUN 10.5 Creatinine 0.59 L Estimated GFR (MDRD) 117.00 BUN/Creatinine Ratio 17.79 Glucose 87.4 Calcium 8.83 Total Bilirubin 1.10 AST 20.1 ALT 18.8 Alkaline Phosphatase 75.7 Total Protein 6.76 Albumin 4.11 Globulin 2.65 Albumin/Globulin Ratio 1.55 Amylase 46.4 Lipase 66.3 Urine Color Urine Clarity Urine pH Ur Specific [place] Urine Protein Urine Glucose (UA) Urine Ketones Urine Blood Urine Nitrite Urine Bilirubin Urine Urobilinogen Ur Leukocyte Esterase Urine Microscopic RBC Ur Squamous Epith Cells Urine Test Orders Category Date Time Status AMYLASE Stat LAB 02/26/19 09:22 Completed CBC W/ AUTO DIFF Stat LAB 02/26/19 09:22 Completed COMPREHENSIVE METABOLIC PANEL Stat LAB 02/26/19 09:22 Completed LIPASE Stat LAB 02/26/19 09:22 Completed URINALYSIS C & S IF INDICATED Stat LAB 02/26/19 08:52 Completed URINE Stat LAB 02/26/19 08:52 Completed Ondansetron HCl/Pf [Zofran 4 mg/2 ml] MEDS 02/26/19 09:31 Discontinued 4 mg IM ONCE STA CHEST, 2 VIEWS PA & LAT Stat RADS 02/26/19 09:[address] ABDOMEN/PELVIS WO CONTRAST Stat RADS 02/26/19 09:07 Completed Medications Discontinued Medications Generic Name Dose Route Start Last Admin Trade Name Freq PRN Reason Stop Dose Admin Ondansetron HCl 4 mg 02/26/19 09:31 02/26/19 09:41 Zofran 4 Mg/2 Ml IM 02/26/19 09:32 4 mg ONCE STA Administration Vital Signs: Temp Pulse Resp BP Pulse Ox 02/26/19 08:21 99.6 F 119 H 18 134/101 H 97 Departure - Departure Time of Disposition: 11:38 Disposition: HOME SELF-CARE Discharge Problem: Nausea, Vomiting Abdominal pain Qualifiers: Abdominal location: generalized Qualified Code(s): R10.84 - Generalized abdominal pain Instructions: Acute Abdominal Pain (ED) Condition: Good Pt referred to PMD for follow-up: Yes IPMP verified?: No Additional Instructions: Please call your Family Physician as soon as possible to schedule a follow-up appointment. Allergies/Adverse Reactions: Allergies No Known Allergies Allergy (Verified 02/26/19 08:33) Home Medications: Ambulatory Orders 1 [No Reported Medications] 02/26/19
== END 2019-02-26 11:54 | disposition home or self-care (01) ==
LOC: ED 08:19
DX: R11.2 Nausea with vomiting, unspecified (principal); R19.7 Diarrhea, unspecified; R10.84 Generalized abdominal pain
CPT/HCPCS: 36415; 80053; 81001; 81025; 82150; 83690; 85025; 96372; 99283